=== PATIENT | male | born 1955 | race Caucasian/White ===

== ENCOUNTER 2017-12-14 19:14 | Inpatient (IN) | payer OTHER, MEDICAID, SELFPAY ==
[2017-12-14 19:26] VITALS: BP 167/89; PULSE 122; RESP 32; TEMP 37.7; O2SAT 91
--- NOTE | 2017-12-14 19:52 | DI.RAD.S_ITS ---
PROCEDURE: XR CHEST 1V INDICATIONS: suspected sepsis TECHNIQUE: One view of the chest was acquired. COMPARISON: None. FINDINGS: Surgical changes and devices: None. Lungs and pleura: No pleural effusions or pneumothorax. Lungs are clear. Mediastinum: Mediastinal contours appear normal. Heart size is normal. Bones and chest wall: No suspicious bony lesions. Overlying soft tissues appear unremarkable. IMPRESSION: No acute cardiopulmonary disease. Dictated by: Paula Spaulding M.D. on 12/14/2017 at 20:23 Approved by: Paula Spaulding M.D. on 12/14/2017 at 20:23
[2017-12-14 20:00] VITALS: PULSE 101
[2017-12-14 20:00] LABS: Add Manual Diff / Slide Review NO; Basophils Percent Auto 0.4 % (0-2); Eosinophils Percent Auto 2.1 % (2-4); Hematocrit 47.5 % (41-53); Hemoglobin 16.5 g/dL (13.5-17.5); Lymphocytes Percent Auto 13.6 % (25-40); Mean Corpuscular HGB Conc 34.7 % (30-36); Mean Corpuscular Hemoglobin 34.6 PG (26-34); Mean Corpuscular Volume 99.5 fL (80-100); Monocytes Percent Auto 10.5 % (3-14); Neutrophils Absolute Auto 8300 /uL (3000-5900); Neutrophils Percent Auto 73.4 % (50-75); Platelet Count 219 X10^3/uL (150-400); Red Blood Cell Count 4.77 X10^6/uL (4.5-5.9); Red Cell Distribution Width 13.4 % (11.6-14.8); White Blood Cell Count 11.3 X10^3/uL (4.5-11.0)
[2017-12-14 20:05] LABS: INR 1.1 (0.9-1.3); Prothrombin Time 11.6 SECONDS (10.1-12.7)
[2017-12-14 20:07] LABS: PTT Partial Thromboplastin Tim 30 SECONDS (26.4-36.2)
[2017-12-14 20:08] LABS: Lactate (Lactic Acid) 1.5 mmol/L (0.7-2.1)
[2017-12-14 20:14] LABS: Alanine Aminotransferase 37 IU/L (21-72); Albumin 4.1 g/dL (3.5-5.0); Albumin Globulin Ratio 1.2 (1.0-2.8); Alkaline Phosphatase 99 U/L (38-126); Aspartate Aminotransferase 31 IU/L (17-59); BUN Creatinine Ratio 12.9 (6-22); Blood Urea Nitrogen 9 mg/dL (9-20); Calcium 9.2 mg/dL (8.4-10.2); Carbon Dioxide 30 mmol/L (22-32); Chloride 88 mmol/L (98-107); Estimated Glomerular Filt Rate > 60.0 mL/min (>60); Globulin 3.5 g/dL (1.7-4.1); Glucose 141 mg/dL (80-110); HEMOLYSIS < 15 (0-50); Lipase 39 U/L (23-300); Sodium 130 mmol/L (137-145); Total Protein 7.6 g/dL (6.3-8.2)
[2017-12-14 20:34] LABS: Procalcitonin < 0.05 ng/mL (<0.5)
[2017-12-14] MEDS: SODIUM CHLORIDE 0.9% 1,000 ML 1000 ML IV (20:39)
--- NOTE | 2017-12-14 20:53 | DI.US.S_ITS ---
PROCEDURE: US ARTERIAL DUPLEX LE BI INDICATIONS: severe, acute lower extremity ulcers/infection TECHNIQUE: Color and pulse Doppler interrogation was performed of both lower extremity arterial systems, with image documentation. COMPARISON: None. FINDINGS: Right lower extremity: Common femoral artery: 124 cm/sec, with triphasic flow. Deep femoral artery: 52 cm/sec, with triphasic flow. Proximal superficial femoral artery: 131 cm/sec, with triphasic flow. Mid superficial femoral artery: 134 cm/sec, with triphasic flow. Distal superficial femoral artery: 85 cm/sec, with triphasic flow. Popliteal artery: 83 cm/sec, with triphasic flow. Posterior tibial artery: 102 cm/sec, with monophasic flow. Anterior tibial artery/dorsalis pedis: 88 cm/sec, with monophasic flow. [place]-scale imaging description: No plaque identified. Left lower extremity: Common femoral artery: 105 cm/sec, with triphasic flow. Deep femoral artery: 52 cm/sec, with triphasic flow. Proximal superficial femoral artery: 144 cm/sec, with triphasic flow. Mid superficial femoral artery: 98 cm/sec, with triphasic flow. Distal superficial femoral artery: 99 cm/sec, with triphasic flow. Popliteal artery: 91 cm/sec, with monophasic flow. Posterior tibial artery: 114 cm/sec, with monophasic flow. Anterior tibial artery/dorsalis pedis: 131 cm/sec, with monophasic flow. [place]-scale imaging description: No plaque IMPRESSION: No evidence for hemodynamically significant focal stenosis in either lower extremity Atherosclerotic changes comprising of monophasic waveforms in the popliteal/distal arteries bilaterally. Dictated by: Shar Pascual M.D. on 12/15/2017 at 10:55 Approved by: Shar Pascual M.D. on 12/15/2017 at 10:58
[2017-12-14] MEDS: HYDROMORPHONE 1 MG INJ IV ×2 (21:01→23:28)
[2017-12-14] MEDS: levoFLOXacin 500 MG/100 ML PIGGYBACK 100 MG IV (21:02)
[2017-12-14 21:03] VITALS: BP 149/81; PULSE 107; RESP 18; O2SAT 96
[2017-12-14 21:14] LABS: C-Reactive Protein Quant 4.9 mg/dL (<1.0)
[2017-12-14 21:24] LABS: Erythrocyte Sedimentation Rate 2 MM/HR (0-15)
[2017-12-14 21:40] VITALS: BP 149/91; PULSE 105; RESP 18; TEMP 37.2; O2SAT 95
--- NOTE | 2017-12-14 22:06 | ED.EXTPRO ---
HPI - Extremity Problem General Chief complaint: Extremity Problem,Nontraumatic Stated complaint: STATES SWELLING,BLEEDING,PAIN BOTH FEET Time Seen by Provider: 12/14/17 19:39 Source: patient and family Mode of arrival: ambulatory Limitations: no limitations History of Present Illness HPI Narrative: 62-year-old long-time smoker presents to the emergency department with about 1 week of worsening bilateral lower extremity ulcers, pain and swelling. He denies any injuries nor systemic symptoms such as fever or chills. He does not see a doctor and states he does not know about any ongoing medical problems but does smoke 1 pack per day. He has multiple painful ulcers, some with drainage on his lower extremities and has developed some redness and swelling as well. He denies any focal neurologic findings such as blurred vision, trouble with speech or numbness, tingling or weakness of his extremities. He denies chest pain or shortness of breath. MD Complaint: extremity pain and extremity swelling Onset (ago): day(s) Pain Consistency: constant Location: left, right and lower extremity Quality: burning, stabbing and aching Radiation: none Relieving factors: nothing Exacerbating factors: weight bearing and walking Associated symptoms: denies other symptoms Related Data Home Medications Medication Instructions Recorded Confirmed No Known Home Medications 12/14/17 12/14/17 Allergies Allergy/AdvReac Type Severity Reaction Status Date / Time No Known Drug Allergies Allergy Verified 12/14/17 19:26 Review of Systems Review of Systems All systems reviewed & are unremarkable except as noted in HPI and below Constitutional Denies chills, Denies fever(s), Denies lethargy and Denies weakness Eyes Denies change in vision, Denies eye discharge, Denies irritation and Denies loss of vision ENT Ears, Nose, Mouth, and Throat: Denies change in voice, Denies neck pain and Denies sore throat Cardiovascular Denies chest pain, Denies irregular heart rhythm, Denies lightheadedness, Denies palpitations, Denies dyspnea, Denies dyspnea on exertion and Denies orthopnea Respiratory Reports cough, Denies dyspnea, Denies dyspnea on exertion and Denies wheezing Gastrointestinal Gastrointestinal: Denies abdominal pain, Denies change in bowel habits, Denies diarrhea, Denies nausea and Denies vomiting Genitourinary Denies hematuria, Denies flank pain, Denies urinary incontinence and Denies urinary urgency Musculoskeletal Reports joint swelling, Reports limited range of motion and Denies neck pain Integumentary/Breasts Denies pruritus, Reports erythema, Denies rash, Reports skin pain, Reports skin swelling, Reports skin ulcer, Reports sores and Denies wounds Neurologic Denies confusion, Denies loss of vision and Denies weakness Psychiatric Denies anxiety, Denies confusion, Denies depression, Denies homicidal ideation and Denies suicidal ideation Endocrine Denies palpitations Hematologic/Lymphatic Denies easy bruising Allergic/Immunologic Denies wheezing PFSH Social History household members: none Smoking Status: Current every day smoker Exam Initial Vital Signs Initial Vital Signs: Vital Signs Temperature 99.8 F H 12/14/17 19:26 Pulse Rate 122 H 12/14/17 19:26 Respiratory Rate 32 H 12/14/17 19:26 Blood Pressure 167/89 H 12/14/17 19:26 Pulse Oximetry 91 12/14/17 19:26 Const General: cooperative, well developed, in distress, anxious and disheveled Nutritional Appearance: well nourished Orientation: alert, awake, oriented x3 and not confused HENTX Head: normocephalic and atraumatic Ears: external ears normal and TM's normal bilaterally Nose: external nose normal and No nasal discharge Face and sinus: sinuses nontender, face symmetric, no sinus tenderness and No dry mucous membranes Mouth: oral mucosae normal and moist mucous membranes Teeth and gingiva: dentition normal Throat: tonsils normal and uvula midline Eyes General: appearance normal, both eyes and all related structures Pupils: PERRL EOM: EOM intact bilaterally Neck Neck: normal visual inspection, trachea midline, No lymphadenopathy, No midline deformity and No JVD Lymphatic: No lymphedema Chest Chest: normal inspection of the chest Cardio Rate: regular rate Rhythm: regular rhythm Heart Sounds: no click, no gallops, no murmurs and no rubs Pulses: normal peripheral pulses Back/Spine/Pelvis Back: No CVA tenderness Cervical Spine: cervical ROM normal and No pain with cervical ROM Thoracic/Lumbar Spine: thoracic and lumbar spine normal to inspection Skin Lesions: lesion noted (Multiple red, dark red, purple or blackish ulcers on lower extremities and toes) Neuro General: alert, oriented x3, gait normal and no focal motor deficits Speech: speech normal Extrem Right lower extremity: lower leg Details: erythema, tenderness and localized swelling Left lower extremity: lower leg Details: erythema, tenderness and localized swelling Other: Patient has sensation of toes though there is some black, possibly necrotic tissue on the dorsum of some toes. There is no crepitance palpated. Both dorsalis pedis pulses are easily obtained with ultrasound Doppler Course Orders Ordered: ED Orders 12/14/17 19:40 C-Reactive Protein Quant Stat Complete Blood Count AUTO DIFF Stat Comprehensive Metabolic Panel Stat Erythrocyte Sedimentation Rate Stat Lactate (Lactic Acid) Stat Lipase Stat Partial Thromboplastin Time Stat Procalcitonin Stat Prothrombin Time INR Stat 12/14/17 19:52 XR chest 1V Stat 12/14/17 20:53 US arterial duplex LE BI Stat 12/14/17 20:55 Blood Culture Stat Acetaminophen (Tylenol) 650 mg PO Q6HR PRN PRN Reason: As Needed for Fever/Mild Pain Hydromorphone HCl (Dilaudid) 2 mg IV Q4HR PRN PRN Reason: Pain, Severe (7-10) Last Admin: 12/15/17 01:29 Dose: 2 mg Sodium Chloride (Normal Saline 0.9%) 1,000 mls @ 125 mls/hr IV CONT MARIA A Last Admin: 12/15/17 01:29 Dose: 125 mls/hr Ondansetron HCl (Zofran) 4 mg IV Q4HR PRN PRN Reason: Nausea And Vomiting Discontinued Medications Hydromorphone HCl (Dilaudid) 1 mg IV NOW ONE Stop: 12/14/17 20:54 Last Admin: 12/14/17 21:01 Dose: 1 mg Hydromorphone HCl (Dilaudid) 1 mg IV NOW ONE Stop: 12/14/17 23:27 Last Admin: 12/14/17 23:28 Dose: 1 mg Sodium Chloride (Normal Saline 0.9%) 1,000 mls @ 1,000 mls/hr IV BOLUS ONE Stop: 12/14/17 20:50 Last Infusion: 12/14/17 22:39 Dose: 0 mls/hr Admin: 12/14/17 20:39 Dose: 1,000 mls/hr Levofloxacin (Levaquin) 500 mg in 100 mls @ 100 mls/hr IV NOW ONE Stop: 12/14/17 21:57 Last Infusion: 12/14/17 22:39 Dose: 0 mls/hr Admin: 12/14/17 21:02 Dose: 100 mls/hr Vancomycin HCl 2,000 mg/ (Sodium Chloride) 500 mls @ 333.333 mls/hr IV NOW ONE Stop: 12/14/17 20:54 Last Infusion: 12/15/17 00:27 Dose: 0 mls/hr Admin: 12/14/17 22:39 Dose: 333.333 mls/hr Consultations Consultation #1: Dr. Miranda is happy to accept this patient Vital Signs - 8 hr 12/14/17 20:00 12/14/17 21:03 12/14/17 21:40 Temperature 99.0 F Pulse Rate 107 H 105 H Pulse Rate [Left Dorsalis Pedis] 101 H Pulse Rate [Right Dorsalis Pedis] 101 H Respiratory Rate 18 18 Blood Pressure Blood Pressure [Right Arm] 149/81 H 149/91 H Pulse Oximetry 96 95 12/14/17 23:39 12/15/17 01:05 Temperature 97.8 F Pulse Rate 97 H 97 H Pulse Rate [Left Dorsalis Pedis] Pulse Rate [Right Dorsalis Pedis] Respiratory Rate 18 18 Blood Pressure 164/86 H Blood Pressure [Right Arm] 132/93 H Pulse Oximetry 94 93 MDM - Extremity (Nontraumatic) Lab Data Result diagrams: 12/14/17 19:40 12/14/17 19:40 Lab Results 12/14/17 12/14/17 12/14/17 Range/Units 19:40 19:40 19:40 WBC 11.3 H (4.5-11.0) X10^3/uL RBC 4.77 (4.5-5.9) X10^6/uL Hgb 16.5 (13.5-17.5) g/dL Hct 47.5 (41-53) % MCV 99.5 (80-100) fL MCH 34.6 H (26-34) PG MCHC 34.7 (30-36) % RDW 13.4 (11.6-14.8) % Plt Count 219 (150-400) X10^3/uL Neut % (Auto) 73.4 (50-75) % Lymph % (Auto) 13.6 L (25-40) % [place] % (Auto) 10.5 (3-14) % Eos % (Auto) 2.1 (2-4) % Baso % (Auto) 0.4 (0-2) % Neut # (Auto) 8300 H (1546-6408) /uL ESR (0-15) MM/HR PT 11.6 (10.1-12.7) SECONDS INR 1.1 (0.9-1.3) APTT 30 (26.4-36.2) SECONDS Sodium (137-145) mmol/L Potassium (3.4-5.1) mmol/L Chloride (98-107) mmol/L Carbon Dioxide (22-32) mmol/L BUN (9-20) mg/dL Creatinine (0.66-1.25) mg/dL Estimated GFR (>60) mL/min BUN/Creatinine Ratio (6-22) Glucose (80-110) mg/dL Lactate (0.7-2.1) mmol/L Calcium (8.4-10.2) mg/dL Total Bilirubin (0.2-1.3) mg/dL AST (17-59) IU/L ALT (21-72) IU/L Alkaline Phosphatase (38-126) U/L C-Reactive Protein (<1.0) mg/dL Total Protein (6.3-8.2) g/dL Albumin (3.5-5.0) g/dL Globulin (1.7-4.1) g/dL Albumin/Globulin Ratio (1.0-2.8) Lipase (23-300) U/L Procalcitonin < 0.05 (<0.5) ng/mL 12/14/17 12/14/17 12/14/17 Range/Units 19:40 19:40 19:40 WBC (4.5-11.0) X10^3/uL RBC (4.5-5.9) X10^6/uL Hgb (13.5-17.5) g/dL Hct (41-53) % MCV (80-100) fL MCH (26-34) PG MCHC (30-36) % RDW (11.6-14.8) % Plt Count (150-400) X10^3/uL Neut % (Auto) (50-75) % Lymph % (Auto) (25-40) % [place] % (Auto) (3-14) % Eos % (Auto) (2-4) % Baso % (Auto) (0-2) % Neut # (Auto) (9321-0175) /uL ESR 2 (0-15) MM/HR PT (10.1-12.7) SECONDS INR (0.9-1.3) APTT (26.4-36.2) SECONDS Sodium 130 L (137-145) mmol/L Potassium 4.0 (3.4-5.1) mmol/L Chloride 88 L (98-107) mmol/L Carbon Dioxide 30 (22-32) mmol/L BUN 9 (9-20) mg/dL Creatinine 0.70 (0.66-1.25) mg/dL Estimated GFR > 60.0 (>60) mL/min BUN/Creatinine Ratio 12.9 (6-22) Glucose 141 H (80-110) mg/dL Lactate 1.5 (0.7-2.1) mmol/L Calcium 9.2 (8.4-10.2) mg/dL Total Bilirubin 1.0 (0.2-1.3) mg/dL AST 31 (17-59) IU/L ALT 37 (21-72) IU/L Alkaline Phosphatase 99 (38-126) U/L C-Reactive Protein (<1.0) mg/dL Total Protein 7.6 (6.3-8.2) g/dL Albumin 4.1 (3.5-5.0) g/dL Globulin 3.5 (1.7-4.1) g/dL Albumin/Globulin Ratio 1.2 (1.0-2.8) Lipase 39 (23-300) U/L Procalcitonin (<0.5) ng/mL 12/14/17 Range/Units 19:40 WBC (4.5-11.0) X10^3/uL RBC (4.5-5.9) X10^6/uL Hgb (13.5-17.5) g/dL Hct (41-53) % MCV (80-100) fL MCH (26-34) PG MCHC (30-36) % RDW (11.6-14.8) % Plt Count (150-400) X10^3/uL Neut % (Auto) (50-75) % Lymph % (Auto) (25-40) % [place] % (Auto) (3-14) % Eos % (Auto) (2-4) % Baso % (Auto) (0-2) % Neut # (Auto) (9721-8105) /uL ESR (0-15) MM/HR PT (10.1-12.7) SECONDS INR (0.9-1.3) APTT (26.4-36.2) SECONDS Sodium (137-145) mmol/L Potassium (3.4-5.1) mmol/L Chloride (98-107) mmol/L Carbon Dioxide (22-32) mmol/L BUN (9-20) mg/dL Creatinine (0.66-1.25) mg/dL Estimated GFR (>60) mL/min BUN/Creatinine Ratio (6-22) Glucose (80-110) mg/dL Lactate (0.7-2.1) mmol/L Calcium (8.4-10.2) mg/dL Total Bilirubin (0.2-1.3) mg/dL AST (17-59) IU/L ALT (21-72) IU/L Alkaline Phosphatase (38-126) U/L C-Reactive Protein 4.9 H (<1.0) mg/dL Total Protein (6.3-8.2) g/dL Albumin (3.5-5.0) g/dL Globulin (1.7-4.1) g/dL Albumin/Globulin Ratio (1.0-2.8) Lipase (23-300) U/L Procalcitonin (<0.5) ng/mL MDM Narrative Medical decision making narrative: Patient clearly has undiagnosed, chronic health problems. Patient denies any systemic symptoms such as fever, chills nor nausea or vomiting. There are multiple poorly healing and infected ulcers on his lower extremities, and some necrotic skin on the dorsum of some toes. Bilateral lower extremity arterial ultrasound suggests the major arteries of the lower extremities are patent bilaterally and no elevated velocities to indicate hemodynamically significant stenoses. Patient placed on broad-spectrum antibiotic coverage as this is likely polymicrobial. I had discussion with Dr. Miranda regarding my a opinion regarding whether the patient would need revascularization or if antibiotics and wound care were appropriate. Given findings on arterial ultrasounds it is my opinion that the patient could be treated locally Critical Care Time Critical Care Time: Yes Total Critical Care Time: 30 Attestation: The high probability of a clinically significant, sudden or life threatening deterioration of the [] system(s) required my full and direct attention, intervention and personal management. The aggregate critical care time was [30] minutes. This time is in addition to time spent performing reported procedures but includes the following: [x] Data Review and interpretation [x] Patient assessment and monitoring of vital signs [x] Documentation [x] Medication orders and management Discharge Plan Departure Discharge Date/Time: 12/15/17 00:28 Interventions: ED Discharge Assessment Last Done: 12/15/17 00:27 Admit Date/Time: 12/14/17 23:59 Admit Provider: Celina Miranda
[2017-12-14] MEDS: VANCOMYCIN 2,000 MG in SODIUM CHLORIDE 0.9% 500 ML 333.333 ML IV (22:39)
[2017-12-14 23:39] VITALS: BP 132/93; PULSE 97; RESP 18; O2SAT 94
[2017-12-15] VITALS (12 sets, daily range): BP systolic 127–164; BP diastolic 78–94; PULSE 86–106; RESP 17–18; TEMP 36.4–36.9; O2SAT 90–96; BMI 30.5
--- NOTE | 2017-12-15 | DI.ECHO.S_ITS ---
[place] [facility]---------+ [facility] +---------+ : : [address] : : : : [id number] : : : : Phone: [phone]+ Echocardiogram Report + + :Name: WILLOW OAKLEY Study Date: 12/15/2017 Height: 72 in : :[facility] Exam Location: IS Weight: 225 lb : : Gender: Male BSA: 2.2 m2 : :: 1955 Age: 62 yrs BP: 143/82 mmHg: :Reason For Study: Bilateral edema : :Ordering Physician: Dr. Whalen : :[place] Performed By: Tammy Page : + + Interpretation Summary The left ventricle is normal in size. The ejection fraction is estimated to be 60-65%. The right ventricle is mildly dilated. The right ventricular systolic function is normal. No significant valvular pathology seen. The right ventricular systolic pressure is estimated at 39 mmHg assuming a right atrial pressure of 3 mm Hg. The ascending aorta is mildly enlarged. Procedure: A two-dimensional transthoracic echocardiogram with color flow and Doppler was performed. The study quality was technically adequate. There is no prior echocardiogram noted for this patient. The patient was in normal sinus rhythm during the exam. Left Ventricle: The left ventricle is normal in size. There is normal left ventricular wall thickness. There is no thrombus. The ejection fraction is estimated to be 60-65%. Septal motion is consistent with conduction abnormality. Assessment of diastolic parameters indicates a relaxation abnormality of the left ventricle, consistent with normal filling pressures. Right Ventricle: The right ventricle is mildly dilated. The right ventricular systolic function is normal. Atria: Both atria are normal in size. There is no Doppler evidence for an interatrial shunt. Mitral Valve: The mitral valve is normal in structure and function. There is no mitral regurgitation noted. Aortic Valve: The aortic valve is trileaflet. The aortic valve opens well. There is no aortic valve stenosis. No aortic regurgitation is present. Tricuspid Valve: The tricuspid valve is normal in structure and function. The right ventricular systolic pressure is estimated at 39 mmHg assuming a right atrial pressure of 3 mm Hg. There is trace tricuspid regurgitation. Pulmonic Valve: The pulmonic valve is not well visualized. There is a trace or physiologic amount of pulmonic regurgitation. Great Vessels: The aortic root is normal size. The ascending aorta is mildly enlarged. The aortic arch could not be visualized. The pulmonary is not well visualized. The IVC is of normal diameter and collapses greater than 50% with a sniff. This suggests a low right atrial pressure of 3 mm Hg. Pericardium/ Pleura There is no pericardial effusion. There is no pleural effusion. MMode/2D Measurements & Calculations LVIDd: 5.6 cm LVOT diam: 2.4 cm LVIDs: 3.7 cm Ao root diam: 3.8 cm FS: 35.0 % asc Aorta Diam: 4.0 cm EPSS: 0.34 cm IVSd: 0.66 cm LVPWd: 0.79 cm LV damon. diameter/BSA (cm/m^2): 2.5 LV sys. diameter/BSA (cm/m^2): 1.6 LA A2 area: 24.3 cm2 RA long axis: 5.1 cm LA A4 area: 18.8 cm2 RA area: 15.9 cm2 LA length (vol): 5.5 cm RA vol: 42.0 ml LA vol: 70.8 ml RA : 18.8 ml/m2 LA vol index: 31.6 ml/m2 IVC diam: 1.8 cm RVD1 (basal): 4.7 cm TAPSE: 2.8 cm Doppler Measurements & Calculations Ao V2 max: 144.3 cm/sec LVOT Max Ruben: 107.0 cm/sec Ao V2 mean: 98.8 cm/sec LV V1 max P.6 mmHg Ao max P.3 mmHg LV V1 VTI: 17.4 cm Ao mean P.5 mmHg TRICIA(I,D): 3.4 cm2 Ao V2 VTI: 23.0 cm TRICIA(V,D): 3.3 cm2 sev ratio: 0.76 TRICIA indexed to BSA (cm^2/m^2): 1.5 MV E max ruben: 59.5 cm/sec TR max ruben: 299.1 cm/sec MV A max ruben: 71.7 cm/sec TR max P.8 mmHg MV E/A: 0.83 PA V2 max: 76.3 cm/sec Med Peak E' Ruben: 5.6 cm/sec PA V2 mean: 50.6 cm/sec E/E' med: 10.7 PA mean P.2 mmHg Lat Peak E' Ruben: 15.7 cm/sec PA Accel Time: 0.08 sec E/E' lat: 3.8 E/e' average: 7.2 MV dec time: 0.15 sec MV P1/2t: 44.5 msec MV P1/2t max ruben: 60.5 cm/sec MVA(P12t): 4.9 cm2 Reading Physician:GREGG
--- NOTE | 2017-12-15 | DI.US.S_ITS ---
PROCEDURE: US ABDOMEN LIMITED INDICATIONS: abd pain, r/o AAA TECHNIQUE: Real-time focused scanning was performed of the abdomen, with image documentation. COMPARISON: None. FINDINGS: No ascites is identif 6 ied in all 4 quadrants. The abdominal aorta is completely obscured by shadowing bowel gas IMPRESSION: No ascites. Abdominal aorta is completely obscured by shadowing bowel gas therefore not evaluated. Consider repeat examination after extended n.p.o. (At least 8 hours). Dictated by: Shar Pascual M.D. on 12/15/2017 at 12:35 Approved by: Shar Pascual M.D. on 12/15/2017 at 12:37
[2017-12-15] MEDS: HYDROMORPHONE 2 MG INJ IV ×3 (01:29→13:05)
[2017-12-15] MEDS: SODIUM CHLORIDE 0.9% 1,000 ML 125 ML IV ×2 (01:29→09:01)
--- NOTE | 2017-12-15 03:16 | PC.NURSE ---
Pt admitted to floor as AxOx3, on 2L NC, complaining of b/l leg pain. Patient saturating in high 80s on room air. Put back on 2L and now satting in mid-low 90s. Pt is a daily drinker/smoker. States he is not sure if he has COPD or diabetes or any disease process because he does not go to the doctor normally. He has multiple ulcers on bilateral legs, shins, ankles, and toes. Some wounds are black, red, purple; some have slough; some with necrosis; some are draining some serosanguinous fluid. EZ Graph for multiple wounds done; Pictures taken. Legs were elevated on pillow. Pt complaining of 10/10 pain, dilaudid 2mg IV given with some relief. IVF started as ordered. No nausea/vomiting. Pt's daughter who is very supportive is at bedside for admission. Call lai in reach, safety maintained.
--- NOTE | 2017-12-15 10:39 | P.HP_ITS ---
History of Present Illness Date Patient Seen: 12/15/17 Time Patient Seen: 10:00 Chief complaint: STATES SWELLING,BLEEDING,PAIN BOTH FEET Narrative: 62-year-old man without primary care provider, living on [facility] , has experienced lower extremity sores and ulcers over the past 2 weeks with associated pain, redness and chills. He was seen by his primary care provider and started on antibiotics after topical antifungals did not seem to provide any benefit. As the areas continued to be painful and started bleeding, he sought medical attention at this facility overnight and was admitted for further management and evaluation. He had a lower extremity Doppler performed which showed no significant stenosis. He was given a dose of Levaquin and admitted for further management and evaluation. Patient History Medical History Alcohol abuse (Acute) Tobacco abuse (Acute) Family & Social History Family History: Reviewed 12/15/17 by Koby Foote MD Social History: household members none Prior Living Arrangements Apartment/Condo Safety & Behavioral: Feels Safe in Current Yes Environment Been Physically Hurt or No Threatened By a Person Suicidal Ideation Description None Suicide Plan Description No Plan Tobacco & Substance use: Smoking Status Current every day smoker Smoking packs per day 1 alcohol intake frequency 3 or more drinks per day Substance Use Type does not use Meds Home Medications Medication Instructions Recorded Confirmed Type No Known Home Medications 12/14/17 12/14/17 History Allergies Allergy/AdvReac Type Severity Reaction Status Date / Time No Known Drug Allergies Allergy Verified 12/14/17 19:26 Review of Systems Review of Systems All systems reviewed & are unremarkable except as noted in HPI and below Exam Vital Signs (past 8 hours): - 12/15/17 06:16 12/15/17 08:19 Temperature 97.8 F 97.5 F L Pulse Rate 106 H 99 H Respiratory Rate 18 18 Blood Pressure 156/91 H 143/82 H Pulse Oximetry 93 96 Oxygen Delivery Method Nasal Cannula Oxygen Flow Rate 2 Narrative Exam Narrative: General: Alert, pleasant male, appears comfortable and, mildly anxious in no apparent distress HEENT: Pupils equal round reactive, extraocular movements intact, mucous membranes pink and moist, no mucosal lesions evident Neck: Supple Lungs: Clear to auscultation Cardiac: Regular rate rhythm with grade 1/6 systolic murmur Abdomen: Soft, obese, nontender, no audible bruits the Extremities: Trace pedal edema Dermatologic: Multiple large deeply purpuric to necrotic appearing ulcerations from the upper 1/3 of the muhammad to the feet, from to 2 cm to 8 cm, involving most of the toes, no fingernail her toenail splinters, a TKA Vascular: 2+ dorsalis pedis and posterior tibialis pulses bilaterally Neurologic: Alert, oriented, intact and full lower extremity strength and normal sensation Objective Imaging Chest x-ray: Radiologist's impression: No acute cardiopulmonary disease. Vascular ultrasound: Radiologist's impression: Pending, per verbal no significant LE stenoses ECG: Sinus tachycardia 104 beats per minute, no ischemic changes Labs Result Diagrams: 12/14/17 19:40 12/14/17 19:40 Labs: Laboratory Results - last 24 hr 12/14/17 12/14/17 12/14/17 19:40 19:40 19:40 WBC 11.3 H RBC 4.77 Hgb 16.5 Hct 47.5 MCV 99.5 MCH 34.6 H MCHC 34.7 RDW 13.4 Plt Count 219 Neut % (Auto) 73.4 Lymph % (Auto) 13.6 L Story % (Auto) 10.5 Eos % (Auto) 2.1 Baso % (Auto) 0.4 Neut # (Auto) 8300 H ESR PT 11.6 INR 1.1 APTT 30 Sodium Potassium Chloride Carbon Dioxide BUN Creatinine Estimated GFR BUN/Creatinine Ratio Glucose Lactate Calcium Total Bilirubin AST ALT Alkaline Phosphatase C-Reactive Protein Total Protein Albumin Globulin Albumin/Globulin Ratio Lipase Procalcitonin < 0.05 12/14/17 12/14/17 12/14/17 19:40 19:40 19:40 WBC RBC Hgb Hct MCV MCH MCHC RDW Plt Count Neut % (Auto) Lymph % (Auto) Story % (Auto) Eos % (Auto) Baso % (Auto) Neut # (Auto) ESR 2 PT INR APTT Sodium 130 L Potassium 4.0 Chloride 88 L Carbon Dioxide 30 BUN 9 Creatinine 0.70 Estimated GFR > 60.0 BUN/Creatinine Ratio 12.9 Glucose 141 H Lactate 1.5 Calcium 9.2 Total Bilirubin 1.0 AST 31 ALT 37 Alkaline Phosphatase 99 C-Reactive Protein Total Protein 7.6 Albumin 4.1 Globulin 3.5 Albumin/Globulin Ratio 1.2 Lipase 39 Procalcitonin 12/14/17 19:40 WBC RBC Hgb Hct MCV MCH MCHC RDW Plt Count Neut % (Auto) Lymph % (Auto) Story % (Auto) Eos % (Auto) Baso % (Auto) Neut # (Auto) ESR PT INR APTT Sodium Potassium Chloride Carbon Dioxide BUN Creatinine Estimated GFR BUN/Creatinine Ratio Glucose Lactate Calcium Total Bilirubin AST ALT Alkaline Phosphatase C-Reactive Protein 4.9 H Total Protein Albumin Globulin Albumin/Globulin Ratio Lipase Procalcitonin Assessment & Plan Plan: Assessment/Plan Narrative: 1. Multiple lower extremity ulcerations, possibly ischemic due to atheroembolic or cardiovascular. Risk factors include chronic tobacco use. Obtain echocardiogram and abdominal ultrasound, and await lower extremity Doppler results. Consider MR angiogram of aortoiliac vessels with runoff pending evaluation. Sedimentation rate was normal and C reactive protein very low and likely reactive, making autoimmune disease unlikely. Consider biopsy. Consult wound care Sunday. Check lipids, TSH and hemoglobin A1c. Treat with aspirin 325 mg daily. 2. Cellulitis due to 1. Continue Levaquin. Follow cultures. 3. Mild hyperglycemia. Check hemoglobin A1c to rule out diabetes. 4. Mild hypertension. Continue to monitor. 5. DVT prophylaxis: Treat with Lovenox. 6. Code status: Full code. 7. Disposition: Admit to inpatient status for close monitoring and evaluation of this complex situation.
[2017-12-15 11:05] LABS: Hemoglobin A1C% w Est Avg Glu 5.7 % (4.0-6.0)
[2017-12-15 11:51] LABS: TSH w/ Reflex to FT4 1.43 uIU/mL (0.47-4.68)
--- NOTE | 2017-12-15 12:59 | CM.DANOTE ---
DCP: Case received, EMR reviewed and met with patient. Introduced self and role. DCP template completed with info currently available. Patient is a 62 year old male who admitted yesterday evening to care of hospitalist team. Patient has no provider, and rarely sees a physician. Confirmed this with patient and daughter. Payer: is self pay. Patient came in to hospital secondary to increased swelling to ankles and feet. Has multiple black ulcerated areas to lower legs and feet. Is currently receiving IV antibiotics at this time. Patient lives on [facility], but daughter lives close by. Did verify this with daughter. P: Check in tomorrow with oncoming hospitalist team, and DCP will continue to assess. Home health may be beneficial to patient, but does not have primary MD. Romelia Montez RN/Commercial Lending Vice President
[2017-12-15] MEDS: ASPIRIN EC 325 MG TABLET PO (13:00)
[2017-12-15] MEDS: ENOXAPARIN 40 MG/0.4 ML SYRINGE SUBCUT (13:00)
[2017-12-15] MEDS: SODIUM CHLORIDE 0.9% 500 ML 21 ML IV (17:34)
[2017-12-15] MEDS: levoFLOXacin 500 MG TABLET PO (21:10)
[2017-12-15] MEDS: MORPHINE PCA 30 MG/30 ML PCA.VIAL IV (21:50)
[2017-12-16] VITALS (10 sets, daily range): BP systolic 138–149; BP diastolic 79–91; PULSE 85–96; RESP 12–22; TEMP 36.7–37.1; O2SAT 91–98
--- NOTE | 2017-12-16 | DI.CT.S_ITS ---
PROCEDURE: CT ANGIO CHEST PE PROTOCOL INDICATIONS: hypoxia, PE protocol TECHNIQUE: After the administration of intravenous contrast, 2 mm thick sections acquired from the pulmonary apices to the posterior costophrenic angles. 3-dimensional maximum intensity projection (MIP) coronal and sagittal reformats were then acquired through the thorax. For radiation dose reduction, the following was used: automated exposure control, adjustment of mA and/or kV according to patient size. COMPARISON: None. FINDINGS: Image quality: Excellent. Pulmonary arteries: Pulmonary arteries are normal in size, and demonstrate no intraluminal filling defects to suggest central pulmonary embolism. Lungs and pleura: Mild centrilobular emphysema. Lungs are clear. No pleural effusions or pneumothorax. Central and peripheral airways are patent. Mediastinum: Heart size is normal, without pericardial effusion. No mediastinal or hilar adenopathy. Thoracic aorta is normal in caliber and enhancement. Esophagus is normal in caliber. Tiny hiatal hernia. Bones and chest wall: No suspicious bony lesions. Ribs and thoracic spine appear intact throughout. Thyroid gland is normal. No axillary or supraclavicular adenopathy. Abdomen: There is diffuse hepatic fatty infiltration with geographic appearance. The left hepatic lobe has higher attenuation, presumably secondary to focal fat sparing. Visualized upper abdominal solid organs appear normal in the early arterial phase of enhancement. IMPRESSION: 1. No evidence for central pulmonary embolism. 2. Mild emphysema. 3. Hepatic steatosis. There is focal fat sparing in the left hepatic lobe. Dictated by: Paula Spaulding M.D. on 12/16/2017 at 12:45 Approved by: Paula Spaulding M.D. on 12/16/2017 at 12:52
--- NOTE | 2017-12-16 | DI.MRI.S_ITS ---
PROCEDURE: MR RUN OFF 3 STAGES ABD START INDICATIONS: PAD TECHNIQUE: Precontrast axial and coronal TruFISP acquired through the abdomen and pelvis. Multi-station dynamic coronal MRA using Care Bolus timing from the kidneys to the ankles during the administration of contrast, with 3-dimensional maximum intensity projection (MIP) reformats constructed. COMPARISON: [facility], US, US ARTERIAL DUPLEX LE , 12/14/2017, 22:03. FINDINGS: Image quality: Excellent. ABDOMEN: Aorta: Aorta is normal in caliber and is patent. Renal arteries: Renal arteries all appear patent. Extravascular soft tissues: Visualized solid organs are normal in size on limited pre-contrast images. Bowel loops are normal in caliber. No free fluid. No retroperitoneal or mesenteric adenopathy by size criteria. No ventral hernias. Bones: Marrow demonstrates normal overall signal. PELVIS AND BILATERAL LOWER EXTREMITIES: Right sided vessels: The common, internal and extra the iliac demonstrate no areas of hemodynamically significant stenosis, vascular occlusion or aneurysmal dilation. The profunda artery is patent. The common and superficial femoral arteries demonstrate no areas of hemodynamically significant stenosis, vascular occlusion or aneurysmal dilation. The popliteal arteries are patent. The run off vessels are somewhat difficult to characterize secondary to significant venous vascular overlap from injection timing. The anterior tibial artery appears patent without hemodynamically significant stenosis and extends to the foot. The peroneal and posterior tibial arteries are well visualized in the proximal and mid portions. However, distal portions are not well visualized. There is significant venous overlap within this region. Left sided vessels: The common, internal and extra the iliac demonstrate no areas of hemodynamically significant stenosis, vascular occlusion or aneurysmal dilation. The profunda artery is patent. The common and superficial femoral arteries demonstrate no areas of hemodynamically significant stenosis, vascular occlusion or aneurysmal dilation. The popliteal arteries are patent. The run off vessels are somewhat difficult to characterize secondary to significant venous vascular overlap from injection timing. The anterior tibial artery appears patent without hemodynamically significant stenosis and extends to the foot. The peroneal and posterior tibial arteries are well visualized in the proximal and mid portions to the level of the mid/distal calf. However, distal portions are not well visualized. There is significant venous overlap within this region. IMPRESSION: 1. No areas of hemodynamically significant stenosis, vascular occlusion or aneurysmal dilation. As noted above, distal aspect of the run off vessels bilaterally are poorly characterized secondary to overlapping venous artifact. Underlying areas of atresia and/or stenosis cannot be excluded. Dictated by: Rachael Silva M.D. on 12/17/2017 at 16:33 Approved by: Rachael Silva M.D. on 12/17/2017 at 16:42
[2017-12-16] MEDS: MORPHINE PCA 30 MG/30 ML PCA.VIAL IV ×2 (06:15→21:29)
[2017-12-16 06:17] LABS: Add Manual Diff / Slide Review NO; Eosinophils Percent Auto 4.7 % (2-4); Hematocrit 40.8 % (41-53); Hemoglobin 13.8 g/dL (13.5-17.5); Lymphocytes Percent Auto 11.2 % (25-40); Mean Corpuscular HGB Conc 33.8 % (30-36); Mean Corpuscular Hemoglobin 34.6 PG (26-34); Mean Corpuscular Volume 102.4 fL (80-100); Monocytes Percent Auto 14.2 % (3-14); Neutrophils Absolute Auto 5800 /uL (3000-5900); Neutrophils Percent Auto 68.9 % (50-75); Platelet Count 186 X10^3/uL (150-400); Red Blood Cell Count 3.98 X10^6/uL (4.5-5.9); Red Cell Distribution Width 13.5 % (11.6-14.8); White Blood Cell Count 8.4 X10^3/uL (4.5-11.0)
[2017-12-16 06:34] LABS: BUN Creatinine Ratio 12.2 (6-22); Blood Urea Nitrogen 11 mg/dL (9-20); Calcium 8.8 mg/dL (8.4-10.2); Chloride 95 mmol/L (98-107); Estimated Glomerular Filt Rate > 60.0 mL/min (>60); Glucose 104 mg/dL (80-110); HEMOLYSIS < 15 (0-50); Potassium 4.4 mmol/L (3.4-5.1); Sodium 138 mmol/L (137-145)
[2017-12-16 06:41] LABS: Carbon Dioxide 36 mmol/L (22-32)
[2017-12-16] MEDS: ENOXAPARIN 40 MG/0.4 ML SYRINGE SUBCUT (09:43)
[2017-12-16] MEDS: ASPIRIN EC 325 MG TABLET PO (09:43)
[2017-12-16] MEDS: MULTIVITAMIN 1 TABLET 1 TAB PO (09:44)
[2017-12-16] MEDS: FOLIC ACID 1 MG TABLET PO (09:44)
[2017-12-16] MEDS: THIAMINE 100 MG TABLET PO (09:44)
--- NOTE | 2017-12-16 10:58 | PM.PN.1 ---
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 He has been hypoxic as well since admission with oxygen saturations 88% on room air, requiring 2 L of oxygen by nasal cannula. He has a longstanding smoking history and notes history of asbestos exposure. Exam Vital Signs (past 8 hours): - 12/16/17 04:00 12/16/17 07:00 12/16/17 07:20 Temperature 98.3 F 98.0 F Pulse Rate 91 H 88 Respiratory Rate 18 12 Blood Pressure 138/85 H 149/91 H Pulse Oximetry 96 95 98 Oxygen Delivery Method Nasal Cannula Oxygen Flow Rate 2 Narrative Exam Narrative: General: Alert, pleasant male, appears comfortable and, mildly anxious in no apparent distress HEENT: Pupils equal round reactive, extraocular movements intact, mucous membranes pink and moist, no mucosal lesions evident Neck: Supple Lungs: Clear to auscultation, diminished throughout Cardiac: Regular rate rhythm with grade 1/6 systolic murmur Abdomen: Soft, obese, nontender, no audible bruits the Extremities: Trace pedal edema Dermatologic: Multiple large deeply purpuric to necrotic appearing ulcerations from the upper 1/3 of the muhammad to the feet, from to 2 cm to 8 cm, involving most of the toes, no fingernail her toenail splinters, a TKA Vascular: 2+ dorsalis pedis and posterior tibialis pulses bilaterally Neurologic: Alert, oriented, intact and full lower extremity strength and normal sensation Objective Labs Result Diagrams: 12/16/17 05:53 12/16/17 05:53 Labs: Laboratory Results - last 24 hr 12/15/17 12/15/17 12/16/17 10:50 10:50 05:53 WBC 8.4 RBC 3.98 L Hgb 13.8 Hct 40.8 L MCV 102.4 H MCH 34.6 H MCHC 33.8 RDW 13.5 Plt Count 186 Neut % (Auto) 68.9 Lymph % (Auto) 11.2 L Fleming % (Auto) 14.2 H Eos % (Auto) 4.7 H Baso % (Auto) 1.0 Neut # (Auto) 5800 Sodium Potassium Chloride Carbon Dioxide BUN Creatinine Estimated GFR BUN/Creatinine Ratio Glucose Hemoglobin A1c 5.7 Calcium TSH 1.43 12/16/17 05:53 WBC RBC Hgb Hct MCV MCH MCHC RDW Plt Count Neut % (Auto) Lymph % (Auto) Fleming % (Auto) Eos % (Auto) Baso % (Auto) Neut # (Auto) Sodium 138 Potassium 4.4 Chloride 95 L Carbon Dioxide 36 H BUN 11 Creatinine 0.90 Estimated GFR > 60.0 BUN/Creatinine Ratio 12.2 Glucose 104 Hemoglobin A1c Calcium 8.8 TSH Assessment & Plan Plan: Assessment/Plan Narrative: 1. 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 Risk factors include chronic tobacco use. Lower extremity arterial Doppler ultrasound showed patent vessels with atherosclerotic disease. Echocardiogram was normal with EF 60-65% and normal valves. Abdominal ultrasound was nondiagnostic to rule out AA, and will obtain MR angiogram of aortoiliac vessels with runoff. Sedimentation rate was normal and C reactive protein very low and likely reactive, making autoimmune disease unlikely. Consider biopsy. Consult wound care Sunday. TSH and hemoglobin A1c normal. Treat with aspirin 325 mg daily. Check lipids and start high-dose statin therapy with rosuvastatin 20 mg daily. 2. Cellulitis due to 1. Continue Levaquin. Follow cultures. 3. Mild hyperglycemia. No evidence of diabetes with normal hemoglobin A1c. 4. Mild hypertension. Continue to monitor. Consider treatment if persistently elevated, though avoid at this point to maximize lower extremity microvascular perfusion pressures. 5. Hypoxia. Incidentally noted and possibly due to chronic undiagnosed COPD from tobacco use. Obtain CT angiogram chest to rule out occult pulmonary emboli. 6. Chronic alcohol use. No evidence of withdrawal presently. Monitor on [facility] protocol. 7. DVT prophylaxis: Treat with Lovenox. 8. Code status: Full code. 9. Disposition: Ongoing inpatient status for close monitoring and evaluation of this complex situation.
[2017-12-16] MEDS: MORPHINE PCA 30 MG/30 ML PCA.VIAL 4 MG IV (14:25)
[2017-12-16] MEDS: SODIUM CHLORIDE 0.9% 500 ML 21 ML IV (17:47)
[2017-12-16] MEDS: levoFLOXacin 500 MG TABLET PO (21:27)
[2017-12-16] MEDS: ROSUVASTATIN 10 MG TABLET 20 MG PO (21:27)
[2017-12-17] VITALS (11 sets, daily range): BP systolic 121–158; BP diastolic 74–94; PULSE 85–106; RESP 18–22; TEMP 36.4–36.9; O2SAT 91–96
[2017-12-17] MEDS: MORPHINE PCA 30 MG/30 ML PCA.VIAL IV ×3 (05:40→22:34)
[2017-12-17 07:05] LABS: BUN Creatinine Ratio 18.9 (6-22); Blood Urea Nitrogen 17 mg/dL (9-20); Calcium 8.8 mg/dL (8.4-10.2); Carbon Dioxide 39 mmol/L (22-32); Chloride 96 mmol/L (98-107); Estimated Glomerular Filt Rate > 60.0 mL/min (>60); Glucose 104 mg/dL (80-110); HEMOLYSIS < 15 (0-50); Sodium 140 mmol/L (137-145)
[2017-12-17 07:26] LABS: Cholesterol 135 mg/dL (140-199); HDL Cholesterol 47 mg/dL (40-60); LDL Cholesterol Calculated 76 mg/dL (<100); Triglycerides 60 mg/dL (35-150)
[2017-12-17] MEDS: THIAMINE 100 MG TABLET PO (09:22)
[2017-12-17] MEDS: FOLIC ACID 1 MG TABLET PO (09:23)
[2017-12-17] MEDS: MULTIVITAMIN 1 TABLET 1 TAB PO (09:23)
[2017-12-17] MEDS: ASPIRIN EC 325 MG TABLET PO (09:23)
--- NOTE | 2017-12-17 10:03 | PC.NURSE ---
Addendum entered by Kristnie Glynn R.N. 12/17/17 11:01: integ - cleaned wounds and between toes with normal saline, gently dried, gent ointment w/foam over open areas, hydrogel to the crusted scab wounds. Original Note: AM NOTE - alert, ciwa 0, states pain bayron le, feet managed with oracle database administrator, active weeping serosang drainage from blackened areas toes from r&l gt toes, between and to 5th with cracks, dry skin visible and bayron le areas open wounds serosang drainage, pink wound bases, dark eschar medial r ankle, in this am and wound cult taken on R&L open wound areas, ra 92%, hr 96.
--- NOTE | 2017-12-17 10:21 | PM.PN.1 ---
Subjective Date Patient Seen: 12/17/17 Time Patient Seen: 10:23 Interval history: Feeling a little better but still with severe sloughing of the skin and pain in the feet Exam Vital Signs (past 8 hours): - 12/17/17 05:25 12/17/17 09:59 12/17/17 10:02 Temperature 97.9 F Pulse Rate 90 Respiratory Rate 20 Blood Pressure 158/89 H Pulse Oximetry 92 92 92 Oxygen Delivery Method Room Air Oxygen Flow Rate 0 Narrative Exam Narrative: He appears in no acute distress lungs clear heart regular rhythm abdomen soft Skin he has multiple scabbed over lesions on the lower shins bilateral and then on the toes and feet he has sloughing skin and appears to be sloughing blisters that her hemorrhagic and starting to scab over this is mostly on the dorsal surface right at the toes and in between the toes. Objective Labs Result Diagrams: 12/16/17 05:53 12/17/17 06:35 Labs: Laboratory Results - last 24 hr 12/17/17 12/17/17 06:35 06:35 Sodium 140 Potassium 4.0 Chloride 96 L Carbon Dioxide 39 H BUN 17 Creatinine 0.90 Estimated GFR > 60.0 BUN/Creatinine Ratio 18.9 Glucose 104 Calcium 8.8 Triglycerides 60 Cholesterol 135 L LDL Cholesterol, Calc 76 HDL Cholesterol 47 Assessment & Plan Plan: Assessment/Plan Narrative: 1. 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 Risk factors include chronic tobacco use. Lower extremity arterial Doppler ultrasound showed patent vessels with atherosclerotic disease. Echocardiogram was normal with EF 60-65% and normal valves. Abdominal ultrasound was nondiagnostic to rule out AA, and will obtain MR angiogram of aortoiliac vessels with runoff. Sedimentation rate was normal and C reactive protein very low and likely reactive, making autoimmune disease unlikely. Consider biopsy. . TSH and hemoglobin A1c normal. Treat with aspirin 325 mg daily. Check lipids and start high-dose statin therapy with rosuvastatin 20 mg daily. Wound care consult to be done today. My also called the sports umpire on staff to have her look at it but she is not in back in in the officer in town until Sunday I did take some pictures today. We will continue local wound care and get the MRA and then possibly we will need to get more input from specialist 2. Cellulitis due to 1. Continue Levaquin. Follow cultures. 3. Mild hyperglycemia. No evidence of diabetes with normal hemoglobin A1c. 4. Mild hypertension. Continue to monitor. Consider treatment if persistently elevated, though avoid at this point to maximize lower extremity microvascular perfusion pressures. 5. Hypoxia. Incidentally noted and possibly due to chronic undiagnosed COPD from tobacco use. CT angio negative for PE 6. Chronic alcohol use. No evidence of withdrawal presently. Monitor on [facility] protocol. 7. DVT prophylaxis: Treat with Lovenox. 8. Code status: Full code. 9. Disposition: Ongoing inpatient status for close monitoring and evaluation of this complex situation.
--- NOTE | 2017-12-17 10:27 | P.PN_ITS ---
Subjective Date Patient Seen: 12/17/17 Time Patient Seen: 10:23 Interval history: Feeling a little better but still with severe sloughing of the skin and pain in the feet Exam Vital Signs (past 8 hours): - 12/17/17 05:25 12/17/17 09:59 12/17/17 10:02 Temperature 97.9 F Pulse Rate 90 Respiratory Rate 20 Blood Pressure 158/89 H Pulse Oximetry 92 92 92 Oxygen Delivery Method Room Air Oxygen Flow Rate 0 Narrative Exam Narrative: He appears in no acute distress lungs clear heart regular rhythm abdomen soft Skin he has multiple scabbed over lesions on the lower shins bilateral and then on the toes and feet he has sloughing skin and appears to be sloughing blisters that her hemorrhagic and starting to scab over this is mostly on the dorsal surface right at the toes and in between the toes. Objective Labs Result Diagrams: 12/16/17 05:53 12/17/17 06:35 Labs: Laboratory Results - last 24 hr 12/17/17 12/17/17 06:35 06:35 Sodium 140 Potassium 4.0 Chloride 96 L Carbon Dioxide 39 H BUN 17 Creatinine 0.90 Estimated GFR > 60.0 BUN/Creatinine Ratio 18.9 Glucose 104 Calcium 8.8 Triglycerides 60 Cholesterol 135 L LDL Cholesterol, Calc 76 HDL Cholesterol 47 Assessment & Plan Plan: Assessment/Plan Narrative: 1. 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 Risk factors include chronic tobacco use. Lower extremity arterial Doppler ultrasound showed patent vessels with atherosclerotic disease. Echocardiogram was normal with EF 60-65% and normal valves. Abdominal ultrasound was nondiagnostic to rule out AA, and will obtain MR angiogram of aortoiliac vessels with runoff. Sedimentation rate was normal and C reactive protein very low and likely reactive, making autoimmune disease unlikely. Consider biopsy. . TSH and hemoglobin A1c normal. Treat with aspirin 325 mg daily. Check lipids and start high-dose statin therapy with rosuvastatin 20 mg daily. Wound care consult to be done today. My also called the assistant hvac mechanic on staff to have her look at it but she is not in back in in the officer in town until Sunday I did take some pictures today. We will continue local wound care and get the MRA and then possibly we will need to get more input from specialist 2. Cellulitis due to 1. Continue Levaquin. Follow cultures. 3. Mild hyperglycemia. No evidence of diabetes with normal hemoglobin A1c. 4. Mild hypertension. Continue to monitor. Consider treatment if persistently elevated, though avoid at this point to maximize lower extremity microvascular perfusion pressures. 5. Hypoxia. Incidentally noted and possibly due to chronic undiagnosed COPD from tobacco use. CT angio negative for PE 6. Chronic alcohol use. No evidence of withdrawal presently. Monitor on [facility] protocol. 7. DVT prophylaxis: Treat with Lovenox. 8. Code status: Full code. 9. Disposition: Ongoing inpatient status for close monitoring and evaluation of this complex situation.
[2017-12-17] MEDS: GENTAMICIN 0.1% OINT 30 GM 1 APPLIC TOP (11:25)
--- NOTE | 2017-12-17 13:46 | P.CONS_ITS ---
History of Present Illness Date Patient Seen: 12/17/17 Time Patient Seen: 08:00 Chief complaint: STATES SWELLING,BLEEDING,PAIN BOTH FEET Requesting provider: Koby Foote Narrative: The patient's been admitted for cellulitis of the lower leg associated with chronic bilateral lower leg and foot ulcers that have been present for about a month. He reports considerable pain in both legs along with swelling but does not report fevers or feeling unwell in general. He's had a work up to review for a possible thromboembolic etiology for the ulcers however his ECHO and CTA are unremarkable. His lower extremity arterial doppler also does not confirm clinically significant PAD and he does not have a diagnosis of diabetes. The patient does report however using hydrogen peroxide on the ulcers and soaking his legs in an epsom salt bath. He also states he takes a full dose aspirin daily but does not report a specific reason for doing so. REPLACED BY [facility] Medical History Alcohol abuse (Acute) Tobacco abuse (Acute) Family History: Reviewed 12/15/17 by Koby Foote MD Social History household members: none Smoking Status: Current every day smoker Meds Home Medications Medication Instructions Recorded Confirmed Type No Known Home Medications 12/14/17 12/14/17 History Allergies Allergy/AdvReac Type Severity Reaction Status Date / Time No Known Drug Allergies Allergy Verified 12/14/17 19:26 Review of Systems Musculoskeletal Musculoskeletal: Reports as per HPI Exam Vital Signs (past 8 hours): - 12/17/17 08:30 12/17/17 09:59 12/17/17 10:02 Temperature 98.1 F Pulse Rate 106 H Respiratory Rate 18 Blood Pressure 151/74 H Pulse Oximetry 91 92 92 Oxygen Delivery Method Room Air Oxygen Flow Rate 0 Extrem Right lower extremity: edema Details: 1+ Left lower extremity: edema Details: 1+ Other: multiple bialteral lower leg and foot ulcers extending to the plantar surfaces with many covered with black eschar and blisters; open ulcers extending to subcut noted along lateral aspects of both feet Objective Labs Result Diagrams: 12/16/17 05:53 12/17/17 06:35 Labs: Laboratory Results - last 24 hr 12/17/17 12/17/17 06:35 06:35 Sodium 140 Potassium 4.0 Chloride 96 L Carbon Dioxide 39 H BUN 17 Creatinine 0.90 Estimated GFR > 60.0 BUN/Creatinine Ratio 18.9 Glucose 104 Calcium 8.8 Triglycerides 60 Cholesterol 135 L LDL Cholesterol, Calc 76 HDL Cholesterol 47 Assessment & Plan Plan: Assessment/Plan Narrative: I've written dressing orders to minimize adherence of the dressings to the open ulcers and to hydrate the eschar covered ones which will help facilitate debridement once he's discharged from the hospital. He has good pulses in both feet so we'll also consider placing compression wraps following discharge as well. My sense is that the ulcers started from excoriated rashes that subsequently became infected and the overlying eschar and dark purple appearance may be related to his using hydrogen peroxide and taking a full dose aspirin. More ominous etiologies such as an embolic or autoimmune events should continue to be considered however in the absence of other systemic findings would be unlikely.
--- NOTE | 2017-12-17 14:48 | CM.DPC ---
DCP: continued: case received, EMR reviewed including DCP assessment per RN Val. [place] Counselor Michelle has met with pt and notes his income at $2000 month. She has given him [facility] info. Am unsure if they will continue to follow on this, [employer] has an email into [employer] employee relations manager for clarification. Dr. Winchester/wound care center is consulting. P: remains in process..of note: pt on CIWA protocol for reported chronic alcohol use but as of today CIWA score at 0. A challenge with the d/c plan will be lack at this point of insurance but pt does have a monthly income. At baseline he was independent and drives. His daughter lives nearby. Dependent on the medical d/c needs pt may be able to manage this in the outpt setting but he will need a PCP. DCP team to continue to follow
[2017-12-17 15:32] LABS: B Type Natriuretic Peptide < 100.0 (<100)
[2017-12-17] MEDS: SODIUM CHLORIDE 0.9% 500 ML 21 ML IV (18:39)
--- NOTE | 2017-12-17 19:16 | PC.NURSE ---
Pt left for MRI ~1540 and arrived back to floor ~1615. New IV placed by D.I nurse. BLE elevated on chux pads, kerlix wrap drsg in place to bilateral feet, drsg DI. Pt continues to use MS TROLLEY WIRE INSTALLER for pain & per pt is taking the edge off. Will continue to monitor.
[2017-12-17] MEDS: levoFLOXacin 500 MG TABLET PO (20:31)
[2017-12-17] MEDS: ROSUVASTATIN 10 MG TABLET 20 MG PO (20:32)
[2017-12-18] VITALS (8 sets, daily range): BP systolic 135–154; BP diastolic 84–89; PULSE 79–96; RESP 16–20; TEMP 36.7–37.1; O2SAT 90–96
[2017-12-18] MEDS: MORPHINE PCA 30 MG/30 ML PCA.VIAL IV ×3 (05:41→21:31)
[2017-12-18] MEDS: ASPIRIN EC 325 MG TABLET PO (09:21)
[2017-12-18] MEDS: GENTAMICIN 0.1% OINT 30 GM 1 APPLIC TOP (09:21)
[2017-12-18] MEDS: THIAMINE 100 MG TABLET PO (09:21)
[2017-12-18] MEDS: FOLIC ACID 1 MG TABLET PO (09:21)
[2017-12-18] MEDS: MULTIVITAMIN 1 TABLET 1 TAB PO (09:21)
--- NOTE | 2017-12-18 09:25 | PC.NURSE ---
Addendum entered by Kristine Glynn R.N. 12/18/17 10:39: iINTEG/RESP - after breakfast, enc pt use IS and demonstrated use to 1500, prior to dsg change, enc use irrigation equipment mechanic, removed kerlex and foam gently with normal saline, larger open areas lat r &l ankles, smaller open areas medial ankles, fluid filled areas along lat l foot, some starting to open, large patches dark eschar mid calf and crusted between toes, hydrogel to crusted areas, gent ointment to open wounds, beds are pink w/serosang drainage, some yellow patches in wounds, gent ointment to open areas with foam over, then kerlex wrap, hydrogel to crusted areas toes and calves. Original Note: AM NOTE - awakened late this am for breakfast, using irrigation equipment mechanic prior to mobilizing to br, states pain 6 on scale 0/10 when le are dependent, dusky, scattered dark eschar visible, ret to bed, elev le, bs dim w/coarse crackles bases, ra 96%, brought in IS, hr 96, discussed chg le dsg later am after meal.
--- NOTE | 2017-12-18 10:21 | PM.PN.1 ---
Subjective Date Patient Seen: 12/18/17 Time Patient Seen: 10:22 Interval history: Still with extreme pain in the feet Exam Vital Signs (past 8 hours): - 12/18/17 04:19 12/18/17 08:00 12/18/17 09:28 Temperature 98.1 F 98.6 F Pulse Rate 96 H 93 H Respiratory Rate 18 17 Blood Pressure 136/84 H 154/84 H Pulse Oximetry 94 90 L 90 L Oxygen Delivery Method Room Air Oxygen Flow Rate 0 Narrative Exam Narrative: He is in no distress HEENT exam unremarkable Lungs clear Heart regular rhythm Abdomen soft nontender Skin multiple scabbed over lesions on the lower shins bilateral and on the toes and feet he has some sloughing of the skin also noted sloping blisters noted hemorrhagic areas and areas there starting to scab over. Areas involved the dorsal surface the feet mostly and then between the toes also some areas on the plantar surface Objective Labs Result Diagrams: 12/16/17 05:53 12/17/17 06:35 Labs: Laboratory Results - last 24 hr 12/17/17 14:40 B-Natriuretic Peptide < 100.0 Assessment & Plan Plan: Assessment/Plan Narrative: 1. 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 Risk factors include chronic tobacco use. Lower extremity arterial Doppler ultrasound showed patent vessels with atherosclerotic disease. Echocardiogram was normal with EF 60-65% and normal valves. Abdominal ultrasound was nondiagnostic to rule out AA, and will obtain MR angiogram of aortoiliac vessels with runoff. Sedimentation rate was normal and C reactive protein very low and likely reactive, making autoimmune disease unlikely. Consider biopsy. . TSH and hemoglobin A1c normal. Treat with aspirin 325 mg daily. Check lipids and start high-dose statin therapy with rosuvastatin 20 mg daily. Wound care consult to be done today. My also called the agricultural extension educator on staff to have her look at it but she is not in back in in the officer in town until Sunday I did take some pictures today. We will continue local wound care. The MRA was also negative no signs of stenosis or significant vascular disease. He does seem to be responding to conservative treatment and placement at a jail type of facility would be appropriate at this point with aching continue with wound care until he can walk better 2. Cellulitis due to 1. There is a small amount of Staph growing out. I will stop the Levaquin and put him on vancomycin for now 3. Mild hyperglycemia. No evidence of diabetes with normal hemoglobin A1c. 4. Mild hypertension. Continue to monitor. Consider treatment if persistently elevated, though avoid at this point to maximize lower extremity microvascular perfusion pressures. 5. Hypoxia. Incidentally noted and possibly due to chronic undiagnosed COPD from tobacco use. CT angio negative for PE 6. Chronic alcohol use. No evidence of withdrawal presently. Monitor on [facility] protocol. 7. DVT prophylaxis: Treat with Lovenox. 8. Code status: Full code. 9. Disposition: Ongoing inpatient status for close monitoring and evaluation of this complex situation.
--- NOTE | 2017-12-18 10:24 | P.PN_ITS ---
Subjective Date Patient Seen: 12/18/17 Time Patient Seen: 10:22 Interval history: Still with extreme pain in the feet Exam Vital Signs (past 8 hours): - 12/18/17 04:19 12/18/17 08:00 12/18/17 09:28 Temperature 98.1 F 98.6 F Pulse Rate 96 H 93 H Respiratory Rate 18 17 Blood Pressure 136/84 H 154/84 H Pulse Oximetry 94 90 L 90 L Oxygen Delivery Method Room Air Oxygen Flow Rate 0 Narrative Exam Narrative: He is in no distress HEENT exam unremarkable Lungs clear Heart regular rhythm Abdomen soft nontender Skin multiple scabbed over lesions on the lower shins bilateral and on the toes and feet he has some sloughing of the skin also noted sloping blisters noted hemorrhagic areas and areas there starting to scab over. Areas involved the dorsal surface the feet mostly and then between the toes also some areas on the plantar surface Objective Labs Result Diagrams: 12/16/17 05:53 12/17/17 06:35 Labs: Laboratory Results - last 24 hr 12/17/17 14:40 B-Natriuretic Peptide < 100.0 Assessment & Plan Plan: Assessment/Plan Narrative: 1. 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 Risk factors include chronic tobacco use. Lower extremity arterial Doppler ultrasound showed patent vessels with atherosclerotic disease. Echocardiogram was normal with EF 60-65% and normal valves. Abdominal ultrasound was nondiagnostic to rule out AA, and will obtain MR angiogram of aortoiliac vessels with runoff. Sedimentation rate was normal and C reactive protein very low and likely reactive, making autoimmune disease unlikely. Consider biopsy. . TSH and hemoglobin A1c normal. Treat with aspirin 325 mg daily. Check lipids and start high-dose statin therapy with rosuvastatin 20 mg daily. Wound care consult to be done today. My also called the time motion analyst on staff to have her look at it but she is not in back in in the officer in town until Sunday I did take some pictures today. We will continue local wound care. The MRA was also negative no signs of stenosis or significant vascular disease. He does seem to be responding to conservative treatment and placement at a [facility] type of facility would be appropriate at this point with aching continue with wound care until he can walk better 2. Cellulitis due to 1. There is a small amount of Staph growing out. I will stop the Levaquin and put him on vancomycin for now 3. Mild hyperglycemia. No evidence of diabetes with normal hemoglobin A1c. 4. Mild hypertension. Continue to monitor. Consider treatment if persistently elevated, though avoid at this point to maximize lower extremity microvascular perfusion pressures. 5. Hypoxia. Incidentally noted and possibly due to chronic undiagnosed COPD from tobacco use. CT angio negative for PE 6. Chronic alcohol use. No evidence of withdrawal presently. Monitor on [facility] protocol. 7. DVT prophylaxis: Treat with Lovenox. 8. Code status: Full code. 9. Disposition: Ongoing inpatient status for close monitoring and evaluation of this complex situation.
[2017-12-18] MEDS: VANCOMYCIN 1,000 MG/200 ML FROZ.PIGGY 200 MG IV ×2 (11:23→19:18)
[2017-12-18] MEDS: VANCOMYCIN PER PHARMACY 1 REQUEST MISC (11:35)
--- NOTE | 2017-12-18 13:45 | CM.DPC ---
DCP Cont: Patient is in need of skilled services, secondary to wounds and weakness. Multiple wounds to lower extremity. Chyna, admissions counselor, stated that patient does qualify for [facility] with [facility]. IP notification faxed with social security number until policy number is available P: DCP continue to assess and plan for update on insurance, to enable skilled placement for patient. Janiya Montez RN/Motor Vehicle Assembly Supervisor
[2017-12-18] MEDS: SODIUM CHLORIDE 0.9% 500 ML 21 ML IV (19:17)
[2017-12-18] MEDS: ROSUVASTATIN 10 MG TABLET 20 MG PO (21:29)
[2017-12-19] VITALS (9 sets, daily range): BP systolic 125–151; BP diastolic 77–89; PULSE 85–103; RESP 18–20; TEMP 36.7–36.9; O2SAT 91–96
[2017-12-19] MEDS: VANCOMYCIN 1,000 MG/200 ML FROZ.PIGGY 200 MG IV ×3 (03:17→17:02)
--- NOTE | 2017-12-19 03:31 | PC.NURSE ---
Addendum entered by Nieves Charles R.N. 12/19/17 06:05: pt used 4mg of his Morphine STUDENT ADMISSIONS CLERK pump Original Note: Pt is AxOx3, CIWA=0, VSS. IVF running as ordered, Morphine STUDENT ADMISSIONS CLERK pump infusing. On contact precautions. Pt is concerned he has a flesh eating bacteria and wants clarification on whether or not his wounds are caused by that. I have explained that his cultures have showed a staph infection and that he is being treated with Vanco. Telemetry on, running NSR. Pt states his pain is about a 6/10. Wounds are wrapped in kerlix and elevated on pillow. Pt is tolerating Room air.
[2017-12-19] MEDS: MORPHINE PCA 30 MG/30 ML PCA.VIAL IV (06:04)
[2017-12-19] MEDS: MULTIVITAMIN 1 TABLET 1 TAB PO (10:15)
[2017-12-19] MEDS: ASPIRIN EC 325 MG TABLET PO (10:15)
[2017-12-19] MEDS: FOLIC ACID 1 MG TABLET PO (10:15)
[2017-12-19] MEDS: THIAMINE 100 MG TABLET PO (10:15)
[2017-12-19] MEDS: GENTAMICIN 0.1% OINT 30 GM 1 APPLIC TOP (10:16)
[2017-12-19 11:41] LABS: Vancomycin Trough 9.1 ug/mL (10-20)
[2017-12-19] MEDS: VANCOMYCIN TROUGH 1 REQUEST MISC (12:43)
--- NOTE | 2017-12-19 13:20 | PM.PN.1 ---
Subjective Date Patient Seen: 12/19/17 Time Patient Seen: 13:21 Interval history: Still complains of pain in the feet Exam Vital Signs (past 8 hours): - 12/19/17 07:00 12/19/17 08:00 12/19/17 10:59 Temperature 98.3 F Pulse Rate 103 H Respiratory Rate 20 Blood Pressure 147/83 H Pulse Oximetry 91 91 93 Fraction of Inspired Oxygen 21 Oxygen Delivery Method Room Air Oxygen Flow Rate 0 Narrative Exam Narrative: He is sitting up on the side of the bed eating lunch appears to be in no acute distress the feet are wrapped there has been no change in the last 24 hr with the ulcerations of the toes and feet. Objective Labs Result Diagrams: 12/16/17 05:53 12/17/17 06:35 Labs: Laboratory Results - last 24 hr 12/19/17 10:40 Vancomycin Trough 9.1 L Assessment & Plan Plan: Assessment/Plan Narrative: 1. 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 Risk factors include chronic tobacco use. Lower extremity arterial Doppler ultrasound showed patent vessels with atherosclerotic disease. Echocardiogram was normal with EF 60-65% and normal valves. Abdominal ultrasound was nondiagnostic to rule out AA, and will obtain MR angiogram of aortoiliac vessels with runoff. Sedimentation rate was normal and C reactive protein very low making autoimmune disease unlikely. Also making acute infection unlikely to Consider biopsy. . TSH and hemoglobin A1c normal. Treat with aspirin 325 mg daily. Check lipids and start high-dose statin therapy with rosuvastatin 20 mg daily. We will continue local wound care. The MRA was also negative no signs of stenosis or significant vascular disease. He does seem to be responding to conservative treatment and placement at a correction type of facility would be appropriate at this point with aching continue with wound care until he can walk better 2. Cellulitis due to 1. There is a small amount of Staph growing out. Plan to continue 1 more day of antibiotics. Normal ESR which probably indicates no active infection at this point cultures have been negative. 3. Mild hyperglycemia. No evidence of diabetes with normal hemoglobin A1c. 4. Mild hypertension. Continue to monitor. Consider treatment if persistently elevated, though avoid at this point to maximize lower extremity microvascular perfusion pressures. 5. Hypoxia. Incidentally noted and possibly due to chronic undiagnosed COPD from tobacco use. CT angio negative for PE 6. Chronic alcohol use. No evidence of withdrawal presently. Monitor on CI [place] protocol. 7. DVT prophylaxis: Treat with Lovenox. 8. Code status: Full code. 9. Disposition: Ongoing inpatient status for close monitoring and evaluation of this complex situation.
--- NOTE | 2017-12-19 15:19 | PC.NURSE ---
day shift pt took a shower and dressing changes performed afterwards. This was extraordinarily painful for the pt and he used the TREE CARE FOREMAN for a total of 16 mg morphine this shift. skin was sloughing off with cleaning with NS. Toes had skin attaching them together with tissue. cleaned and ointments applied per orders. foam applied on open areas, telfa applied between toes with appropriate ointments as well. wrapped in kerlix. hourly rounding provided, call light within reach.
[2017-12-19] MEDS: OXYCODONE IR 5 MG TABLET 10 MG PO ×2 (17:07→21:55)
[2017-12-19] MEDS: ROSUVASTATIN 10 MG TABLET 20 MG PO (21:55)
[2017-12-20] VITALS (8 sets, daily range): BP systolic 125–150; BP diastolic 78–87; PULSE 84–105; RESP 18–22; TEMP 36.5–37.2; O2SAT 91–95
[2017-12-20] MEDS: VANCOMYCIN 1,000 MG/200 ML FROZ.PIGGY 100 MG IV ×2 (00:29→06:50)
[2017-12-20] MEDS: SODIUM CHLORIDE 0.9% 500 ML 21 ML IV (00:31)
[2017-12-20] MEDS: OXYCODONE IR 5 MG TABLET 10 MG PO ×6 (00:59→21:17)
--- NOTE | 2017-12-20 02:20 | PC.NURSE ---
Addendum entered by Nieves Charles R.N. 12/20/17 06:49: vanco trough= 16.8 Original Note: Pt is AxOx3, VSS, tolerating room air at 94%. Pt's IV has infiltrated for a second time, and has been replaced. I am running the Vanco at a slower rate of 100cc/hr so patients IV doesn't infiltrate for a 3rd time, i also am infusing NS 21cc/hr concurrently as well to help with the causticity of the Vanco. Trough to be done in the morning. 2 percolone tabs given thus far for pain of 7/10, pt frequently stating his legs are burning and in pain. Legs are wrapped in kerlix and elevated on pillow. CIWA=0. Tele showing NSR. Contact precautions maintained.
[2017-12-20 05:48] LABS: Add Manual Diff / Slide Review NO; Basophils Percent Auto 0.7 % (0-2); Eosinophils Percent Auto 4.4 % (2-4); Hematocrit 40.6 % (41-53); Hemoglobin 13.7 g/dL (13.5-17.5); Lymphocytes Percent Auto 16.5 % (25-40); Mean Corpuscular HGB Conc 33.8 % (30-36); Mean Corpuscular Hemoglobin 34.2 PG (26-34); Mean Corpuscular Volume 101.4 fL (80-100); Monocytes Percent Auto 10.5 % (3-14); Neutrophils Absolute Auto 6100 /uL (3000-5900); Neutrophils Percent Auto 67.9 % (50-75); Platelet Count 199 X10^3/uL (150-400); Red Blood Cell Count 4.01 X10^6/uL (4.5-5.9); Red Cell Distribution Width 13.2 % (11.6-14.8); White Blood Cell Count 8.9 X10^3/uL (4.5-11.0)
[2017-12-20 05:55] LABS: BUN Creatinine Ratio 21.3 (6-22); Blood Urea Nitrogen 17 mg/dL (9-20); Calcium 8.6 mg/dL (8.4-10.2); Chloride 95 mmol/L (98-107); Estimated Glomerular Filt Rate > 60.0 mL/min (>60); Glucose 111 mg/dL (80-110); HEMOLYSIS < 15 (0-50); Potassium 4.1 mmol/L (3.4-5.1); Sodium 136 mmol/L (137-145)
[2017-12-20 05:56] LABS: Carbon Dioxide 39 mmol/L (22-32)
[2017-12-20 06:39] LABS: Vancomycin Trough 16.8 ug/mL (10-20)
[2017-12-20] MEDS: VANCOMYCIN TROUGH 1 REQUEST MISC (06:50)
[2017-12-20] MEDS: MULTIVITAMIN 1 TABLET 1 TAB PO (08:00)
[2017-12-20] MEDS: FOLIC ACID 1 MG TABLET PO (08:00)
[2017-12-20] MEDS: ASPIRIN EC 325 MG TABLET PO (08:01)
[2017-12-20] MEDS: GENTAMICIN 0.1% OINT 30 GM 1 APPLIC TOP (11:26)
[2017-12-20] MEDS: HYDROMORPHONE 1 MG INJ IV (12:02)
--- NOTE | 2017-12-20 15:48 | PM.PN.1 ---
Subjective Date Patient Seen: 12/20/17 Time Patient Seen: 10:00 Interval history: Patient complaining of pain on bilateral feet with dressing changes. He denies fevers or chills Exam Vital Signs (past 8 hours): - 12/20/17 09:06 12/20/17 12:18 Temperature 98.9 F 97.7 F Pulse Rate 92 H 85 Respiratory Rate 18 22 Blood Pressure 132/80 H 145/78 H Pulse Oximetry 92 91 Fraction of Inspired Oxygen 21 Oxygen Delivery Method Room Air Oxygen Flow Rate 0 Narrative Exam Narrative: General: Middle-aged man in no acute distress Lungs: Clear to auscultation bilaterally Heart: Regular rhythm, no murmur appreciated Abdomen: Soft, nontender Extremities: Bilateral lower leg and feet has multiple bullae that was filled with blood. There are 2 large ulcerations on bilateral lateral ft. Multiple hemorrhagic bullae between the toes, on bilateral feet, and lower leg Objective Labs Result Diagrams: 12/20/17 05:30 12/20/17 05:30 Labs: Laboratory Results - last 24 hr 12/20/17 12/20/17 12/20/17 05:30 05:30 05:30 WBC 8.9 RBC 4.01 L Hgb 13.7 Hct 40.6 L MCV 101.4 H MCH 34.2 H MCHC 33.8 RDW 13.2 Plt Count 199 Neut % (Auto) 67.9 Lymph % (Auto) 16.5 L Snyder % (Auto) 10.5 Eos % (Auto) 4.4 H Baso % (Auto) 0.7 Neut # (Auto) 6100 H Sodium 136 L Potassium 4.1 Chloride 95 L Carbon Dioxide 39 H BUN 17 Creatinine 0.80 Estimated GFR > 60.0 BUN/Creatinine Ratio 21.3 Glucose 111 H Calcium 8.6 Vancomycin Trough 16.8 Assessment & Plan Plan: Assessment/Plan Narrative: 1. 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 Risk factors include chronic tobacco use. Lower extremity arterial Doppler ultrasound showed patent vessels with atherosclerotic disease. Echocardiogram was normal with EF 60-65% and normal valves. Abdominal ultrasound was nondiagnostic to rule out AA. MR angiogram of aortoiliac vessels with runoff did not reveal hemodynamically significant stenosis, vascular occlusion or aneurysmal dilation. Sedimentation rate was normal and C reactive protein very low making autoimmune disease unlikely. Also making acute infection unlikely to Consider biopsy. . TSH and hemoglobin A1c normal. Treat with aspirin 325 mg daily. Continue high-dose statin therapy with rosuvastatin 20 mg daily, which was started during this hospital admission. We will continue local wound care. The MRA was also negative no signs of stenosis or significant vascular disease. He does seem to be responding to conservative treatment and placement at a prison type of facility would be appropriate at this point with aching continue with wound care until he can walk better 2. Cellulitis due to 1. One wound culture grew MSSA. He was treated with IV Vanco. Vancomycin was discontinued earlier today. We will start him on oral Bactrim DS 1 tablet orally twice a day for antibacterial coverage. The cellulitis has significantly improved. 3. Disposition: branch operation evaluation manager is working on [facility] facility placement. 3. Mild hyperglycemia. No evidence of diabetes with normal hemoglobin A1c. 4. Mild hypertension. Continue to monitor. Consider treatment if persistently elevated, though avoid at this point to maximize lower extremity microvascular perfusion pressures. 5. Hypoxia. Incidentally noted and possibly due to chronic undiagnosed COPD from tobacco use. CT angio negative for PE 6. Chronic alcohol use. No evidence of withdrawal presently. Monitor on [facility] [place] protocol. 7. DVT prophylaxis: Treat with Lovenox. 8. Code status: Full code. 9. Disposition: Ongoing inpatient status for close monitoring and evaluation of this complex situation.
--- NOTE | 2017-12-20 16:01 | CM.DPC ---
DCP Cont: Called and spoke to Laura at [facility]. Also, faxed notes, including clinicals, wound information, therapy notes. Stated [facility] [place] [facility] and would let us know. This is to get patient the skilled care that he needs. P: Will follow up with [facility] tomorrow, regarding skilled placement Romelia Montez RN/Machine Operators
[2017-12-20] MEDS: SULFA/TRIMETH 800/160 (DS) TABLET 1 TAB PO (20:43)
[2017-12-20] MEDS: ROSUVASTATIN 10 MG TABLET 20 MG PO (20:43)
[2017-12-21] VITALS (8 sets, daily range): BP systolic 123–142; BP diastolic 73–96; PULSE 85–100; RESP 18–22; TEMP 36.2–37; O2SAT 89–97
[2017-12-21] MEDS: OXYCODONE IR 5 MG TABLET 10 MG PO ×5 (00:40→22:26)
--- NOTE | 2017-12-21 06:06 | PC.NURSE ---
Pt is AxOx3, VSS, tolerating room air. Doing much better in terms of pain tolerance, have only given oxycodone once this shift so far. Pt wants to hold off on taking pain meds until he really needs it like when he needs to get up to pee or dangles his feet. Dressing to feet are CDI, b/l legs elevated on pillow. Swelling in lefs/feet bilaterally have gone down significantly since he was first admitted. Pt overall seems to be doing much better. Slept well last night.
[2017-12-21] MEDS: MULTIVITAMIN 1 TABLET 1 TAB PO (09:34)
[2017-12-21] MEDS: FOLIC ACID 1 MG TABLET PO (09:34)
[2017-12-21] MEDS: SULFA/TRIMETH 800/160 (DS) TABLET 1 TAB PO ×2 (09:34→20:59)
[2017-12-21] MEDS: ASPIRIN EC 325 MG TABLET PO (09:34)
--- NOTE | 2017-12-21 11:32 | CM.DPC ---
DCP: Spoke to [facility], they have authorized him for skilled care, but [facility] would have to review the notes to accept him, for they are not contracted with [facility]. Did leave a message with Samara at [facility]. Awaiting phone call. P: Patient is to be discharged today, but need to await call back from [facility] regarding the plan. Romelia Montez RN/Client Director
[2017-12-21] MEDS: GENTAMICIN 0.1% OINT 30 GM 1 APPLIC TOP (12:02)
[2017-12-21] MEDS: HYDROMORPHONE 1 MG INJ IV (12:17)
--- NOTE | 2017-12-21 13:43 | PM.DS.1 ---
History of Present Illness Chief complaint: STATES SWELLING,BLEEDING,PAIN BOTH FEET Narrative: 62-year-old man without primary care provider, living on [facility], has experienced lower extremity sores and ulcers over the past 2 weeks with associated pain, redness and chills. He was seen by his primary care provider and started on antibiotics after topical antifungals did not seem to provide any benefit. As the areas continued to be painful and started bleeding, he sought medical attention at this facility overnight and was admitted for further management and evaluation. He had a lower extremity Doppler performed which showed no significant stenosis. He was given a dose of Levaquin and admitted for further management and evaluation. Discharge Providers Date of admission: 12/14/17 23:59 Primary care physician: Anthony Valenzuela MD Consults: 12/15/17 11:52 Consult to Dietitian, Adult Routine Comment: Reason For Exam: ETOH 12/16/17 11:08 Consult to Physician Routine Comment: Consulting Provider: Anthony Winchester Reason for consultation: LE ulcers Has provider been notified: No Discharge provider: Celina Miranda MD Discharge Date: 12/21/17 Summary Discharge Diagnosis: 1. Multiple ulceration on bilateral lower leg and feet, possibly ischemic due to atheroembolic or cardiovascular. 2. Cellulitis secondary to 1. Hospital Course: 1. Multiple ulceration on bilateral lower leg and feet, possibly ischemic due to atheroembolic or cardiovascular. Risk factor including chronic tobacco abuse. Left lower extremity arterial Doppler ultrasound showed patent blood vessels with atherosclerotic disease. Echocardiogram did not reveal any vegetation. No valvular abnormalities. Abdominal ultrasound was nondiagnostic to rule out abdominal aortic aneurysm. MR angiogram of aorta and iliac vessels with turn off did not reveal hemodynamically significant stenosis, vascular occlusion or aneurysmal dilation. CRP was 4.9. Sedimentation rate was normal. TSH and hemoglobin A1c were normal. He was treated with full-dose aspirin. High dose statin therapy with Crestor 20 mg once a day was started during this hospital admission. He also received local wound care. 2. Cellulitis secondary to 1: Wound culture grew MSSA. He was initially treated with IV vancomycin. Vancomycin was started on December 15, 2017 and discontinued on December 20, 2017. He was started on oral Bactrim DS 1 tablet twice a day on December 20, 2017. Consider discontinue Bactrim after December 25, 2017. 3. Borderline hypertension: His blood pressure is mostly in the range of 130-150 systolic. We will continue monitor his blood pressure readings. Antihypertensive medications were not started during this hospitalization. Status at Discharge Cognitive/behavioral status at discharge: Alert and oriented x3 Functional status at discharge: independent ambulation Overall status at discharge: patient is progressing back to baseline Time Spent with Patient Greater than 30 minutes Exam Vital Signs (past 8 hours): - 12/21/17 08:00 Temperature 98.6 F Pulse Rate 100 H Respiratory Rate 22 Blood Pressure 140/86 H Pulse Oximetry 90 L Fraction of Inspired Oxygen 21 Oxygen Delivery Method Room Air Oxygen Flow Rate 0 Narrative Exam Narrative: General: Middle-age man in no acute distress Lungs: Clear to auscultation bilaterally Heart: Regular rhythm, no murmur appreciated Abdomen: Soft, nontender Extremities: Bilateral lower leg and feet ulcers was rushed in dressing. Objective Imaging Arterial Doppler study: Radiologist's impression: No evidence for hemodynamically significant focal stenosis in either lower extremity Atherosclerotic changes comprising of monophasic waveforms in the popliteal/distal arteries bilaterally. MRA: Radiologist's impression: 1. No areas of hemodynamically significant stenosis, vascular occlusion or aneurysmal dilation. As noted above, distal aspect of the run off vessels bilaterally are poorly characterized secondary to overlapping venous artifact. Underlying areas of atresia and/or stenosis cannot be excluded Labs Result Diagrams: 12/20/17 05:30 12/20/17 05:30 Discharge Plan Discharge Plan Patient Disposition: SNF Transfer to: [facility] Under care of provider: Physician who works at the SNF Transportation: Wheelchair Labs: recheck cbc, ESR, CRP and chem 7 in one week Consult as needed: Dental, Hearing, Mental health, Podiatry and Vision I certify the [facility] care is medically necessary on a continuing basis for any conditions for which he/ she received care during this hospitalization.: Yes The receiving facility has agreed to accept transfer and provide medical treatment.: Yes Discharge Health Status Brief summary of current health status: see summary Multidrug resistant organism: No MDRO MDRO Verified by culture: Yes Date verified: 12/21/17 Precautions: [place] Provider Discharge Instructions Diet: Diet as Tolerated Liquid consistency: Normal/Thin Food texture: Regular Discharge Data Primary Care Provider: Anthony Valenzuela Attending Provider: Celina Miranda Admit Date/Time: 12/14/17 23:59
--- NOTE | 2017-12-21 13:59 | P.DS_ITS ---
History of Present Illness Chief complaint: STATES SWELLING,BLEEDING,PAIN BOTH FEET Narrative: 62-year-old man without primary care provider, living on [facility] , has experienced lower extremity sores and ulcers over the past 2 weeks with associated pain, redness and chills. He was seen by his primary care provider and started on antibiotics after topical antifungals did not seem to provide any benefit. As the areas continued to be painful and started bleeding, he sought medical attention at this facility overnight and was admitted for further management and evaluation. He had a lower extremity Doppler performed which showed no significant stenosis. He was given a dose of Levaquin and admitted for further management and evaluation. Discharge Providers Date of admission: 12/14/17 23:59 Primary care physician: Anthony Valenzuela MD Consults: 12/15/17 11:52 Consult to Dietitian, Adult Routine Comment: Reason For Exam: ETOH 12/16/17 11:08 Consult to Physician Routine Comment: Consulting Provider: Anthony Winchester Reason for consultation: LE ulcers Has provider been notified: No Discharge provider: Celina Miranda MD Discharge Date: 12/21/17 Summary Discharge Diagnosis: 1. Multiple ulceration on bilateral lower leg and feet, possibly ischemic due to atheroembolic or cardiovascular. 2. Cellulitis secondary to 1. Hospital Course: 1. Multiple ulceration on bilateral lower leg and feet, possibly ischemic due to atheroembolic or cardiovascular. Risk factor including chronic tobacco abuse. Left lower extremity arterial Doppler ultrasound showed patent blood vessels with atherosclerotic disease. Echocardiogram did not reveal any vegetation. No valvular abnormalities. Abdominal ultrasound was nondiagnostic to rule out abdominal aortic aneurysm. MR angiogram of aorta and iliac vessels with turn off did not reveal hemodynamically significant stenosis, vascular occlusion or aneurysmal dilation. CRP was 4.9. Sedimentation rate was normal. TSH and hemoglobin A1c were normal. He was treated with full-dose aspirin. High dose statin therapy with Crestor 20 mg once a day was started during this hospital admission. He also received local wound care. 2. Cellulitis secondary to 1: Wound culture grew MSSA. He was initially treated with IV vancomycin. Vancomycin was started on December 15, 2017 and discontinued on December 20, 2017. He was started on oral Bactrim DS 1 tablet twice a day on December 20, 2017. Consider discontinue Bactrim after December 25, 2017. 3. Borderline hypertension: His blood pressure is mostly in the range of 130- 150 systolic. We will continue monitor his blood pressure readings. Antihypertensive medications were not started during this hospitalization. Status at Discharge Cognitive/behavioral status at discharge: Alert and oriented x3 Functional status at discharge: independent ambulation Overall status at discharge: patient is progressing back to baseline Time Spent with Patient Greater than 30 minutes Exam Vital Signs (past 8 hours): - 12/21/17 08:00 Temperature 98.6 F Pulse Rate 100 H Respiratory Rate 22 Blood Pressure 140/86 H Pulse Oximetry 90 L Fraction of Inspired Oxygen 21 Oxygen Delivery Method Room Air Oxygen Flow Rate 0 Narrative Exam Narrative: General: Middle-age man in no acute distress Lungs: Clear to auscultation bilaterally Heart: Regular rhythm, no murmur appreciated Abdomen: Soft, nontender Extremities: Bilateral lower leg and feet ulcers was rushed in dressing. Objective Imaging Arterial Doppler study: Radiologist's impression: No evidence for hemodynamically significant focal stenosis in either lower extremity Atherosclerotic changes comprising of monophasic waveforms in the popliteal/ distal arteries bilaterally. MRA: Radiologist's impression: 1. No areas of hemodynamically significant stenosis, vascular occlusion or aneurysmal dilation. As noted above, distal aspect of the run off vessels bilaterally are poorly characterized secondary to overlapping venous artifact. Underlying areas of atresia and/or stenosis cannot be excluded Labs Result Diagrams: 12/20/17 05:30 12/20/17 05:30 Discharge Plan Discharge Plan Patient Disposition: SNF Transfer to: [facility] Under care of provider: Physician who works at the SNF Transportation: Wheelchair Labs: recheck cbc, ESR, CRP and chem 7 in one week Consult as needed: Dental, Hearing, Mental health, Podiatry and Vision I certify the postop hospital [facility] care is medically necessary on a continuing basis for any conditions for which he/ she received care during this hospitalization.: Yes The receiving facility has agreed to accept transfer and provide medical treatment.: Yes Discharge Health Status Brief summary of current health status: see summary Multidrug resistant organism: No MDRO MDRO Verified by culture: Yes Date verified: 12/21/17 Precautions: [place] Provider Discharge Instructions Diet: Diet as Tolerated Liquid consistency: Normal/Thin Food texture: Regular Discharge Data Primary Care Provider: Anthony Valenzuela Attending Provider: Celina Miranda Admit Date/Time: 12/14/17 23:59
--- NOTE | 2017-12-21 15:21 | PC.NURSE ---
Pts dressings to bilateral legs both changed. Please see under physical assessment for details. Pt given 1mg of dilaudid before and also give percolone for 6/10 pain this am. Up to bathroom independently and voiding. States no bm this morning. Plan for discharge, may be to go to [facility]. planner/scheduler Jazmine is waiting to hear back from them. he is resting comfortably.
--- NOTE | 2017-12-21 15:25 | CM.DPC ---
DCP Cont: Have been attempting to get patient to [facility]. [facility] can't take patient, since he has [facility]. Have been trying [facility]. Talked to Samara at [facility], and stated that [facility] would only pay them so much, but to contact Tammy at [facility]. Called Tammy, gave her information regarding wound care, and let her know that patient is on oral antibiotics. Let her know that he is also on topical Gentamycin. Stated that she would have to review with their doctor, before letting us know regarding authorization. Faxed over wound note from Dr. Winchester, as well. Have discharge orders, should we receive authorization. If questions, Tammy from [facility] contact number is: [phone], ext: [phone] P: Need to await approval from [facility], which is pending discharge to [facility]. Romelia Montez RN/Syrup Maker Cook
[2017-12-21] MEDS: ROSUVASTATIN 10 MG TABLET 20 MG PO (20:59)
[2017-12-21] MEDS: SODIUM CHLORIDE 0.9% FLUSH 10 ML IV (20:59)
[2017-12-22] VITALS (10 sets, daily range): BP systolic 119–154; BP diastolic 68–90; PULSE 82–94; RESP 16–20; TEMP 36.1–36.9; O2SAT 90–94
[2017-12-22] MEDS: ACETAMINOPHEN 325 MG TABLET 650 MG PO ×2 (02:25→09:08)
[2017-12-22] MEDS: OXYCODONE IR 5 MG TABLET 10 MG PO ×5 (02:28→19:59)
[2017-12-22] MEDS: SODIUM CHLORIDE 0.9% FLUSH 10 ML IV ×2 (09:08→13:48)
[2017-12-22] MEDS: ASPIRIN EC 325 MG TABLET PO (09:08)
[2017-12-22] MEDS: FOLIC ACID 1 MG TABLET PO (09:08)
[2017-12-22] MEDS: SULFA/TRIMETH 800/160 (DS) TABLET 1 TAB PO ×2 (09:09→20:37)
[2017-12-22] MEDS: MULTIVITAMIN 1 TABLET 1 TAB PO (09:09)
[2017-12-22] MEDS: HYDROMORPHONE 1 MG INJ IV (13:47)
[2017-12-22] MEDS: GENTAMICIN 0.1% OINT 30 GM 1 APPLIC TOP (13:48)
--- NOTE | 2017-12-22 19:14 | PC.NURSE ---
Mostly in bed with BL LE's elevated. Actively ankle waving and calf pumping in bed. Dozes easily after receiving oxycodone for pain /10. Up independently to toilet. Prunes for bowel function. Calm, cooperative. Kerlix secured with netting in place to wounds BL LE's.
--- NOTE | 2017-12-22 20:16 | PC.NURSE ---
Pt c/o increasing abdominal discomfort r/t constipation. Dr. Rodríguez was notified by telephone and orders received for bowel meds.
[2017-12-22] MEDS: ROSUVASTATIN 10 MG TABLET 20 MG PO (20:37)
[2017-12-22] MEDS: DOCUSATE 100 MG CAPSULE PO (21:11)
[2017-12-22] MEDS: MAGNESIUM HYDROXIDE 30 ML UDC PO (21:11)
[2017-12-23] VITALS (7 sets, daily range): BP systolic 123–141; BP diastolic 72–79; PULSE 85–97; RESP 16–20; TEMP 36.7–37.3; O2SAT 92–95
[2017-12-23] MEDS: OXYCODONE IR 5 MG TABLET 10 MG PO ×6 (00:03→22:35)
[2017-12-23] MEDS: MULTIVITAMIN 1 TABLET 1 TAB PO (08:28)
[2017-12-23] MEDS: SULFA/TRIMETH 800/160 (DS) TABLET 1 TAB PO ×2 (08:28→22:37)
[2017-12-23] MEDS: ASPIRIN EC 325 MG TABLET PO (08:28)
[2017-12-23] MEDS: FOLIC ACID 1 MG TABLET PO (08:28)
[2017-12-23] MEDS: DOCUSATE 100 MG CAPSULE PO ×2 (08:28→22:37)
--- NOTE | 2017-12-23 09:09 | CM.DPC ---
Addendum entered by Farzaneh Fofana LPN 12/23/17 14:12: wound care info gathered from chart with assist of ERIC Mehta. Included EZ Graft markings. Faxed now to [facility] Original Note: DCP: continued: Case received, EMR reviewed, conferred with ERIC Roblero and met with pt re the current d/c plan: noted to be [facility] pending [facility] authorization. Pt confirms that he plans the snf setting, although at this point he is on oral antibiotics and is mobilizing in his room independently. Pt says the dressing changes are such that he cannot do them himself and without home health services and someone to assist him this is not possible at home. Pt does not have a PCP, uses the urgent care clinic on [address], says he does not plan to get a PCP, I really don't need one or want one. He cannot access HH services without a PCP. Pt wondered about a SNF on the [facility] as the list I got has a [facility] facility listed. Explained that this facility is closed and no others are on the [facility]. [facility] cannot accept Lara. He says he is agreeable to [facility] because I can't go home like this. Discussed with ERIC Roblero. She confirms daily dressing changes bilateral LE. Will plan to observe today during the dressing change. Discussed obtaining updated documentation re wounds so that case for snf can be continued. Discussed case with Dr. Rodríguez/hospitalist as no physician has followed pt since Dr. Miranda's d/c on 12/21. He ok's a PT order as therapy has not worked with him and thus far his mobility is limited to his room and, per RN, limited by pain. Called [facility] and spoke with church business administrator Stanislav. He confirms that they can accept pt and provide transportation once [facility]ara has authorized but this likely will not occur until Sunday. He confirms that Samara has been working on case in coordination with DC program services planner ERIC Lucero and that the discussion will continue on . Agreed to fax updated info to Samara today to help with the insurance authorization of this case.
--- NOTE | 2017-12-23 13:30 | PT.IIE ---
Current Diagnoses Non-pressure chronic ulcer of other part of right lower leg with fat layer exposed (12/14/17) Non-pressure chronic ulcer of other part of left lower leg with fat layer exposed (12/14/17) Medical History (Last Reviewed 12/17/17 @ 13:39 by Anthony Winchester MD) Alcohol abuse (Acute) Tobacco abuse (Acute) Physical Therapy Inpatient Evaluation/Re-Eval M1 PT/OT-IP Prior Functional Status Start: 12/23/17 13:54 Freq: Status: Active Protocol: Document 12/23/17 13:30 [facility] (Rec: 12/23/17 14:[address] [facility] [id number]) Medical Review Prior Functional Status Medical History Reviewed Yes Diet/Fluid Consistency Regular Communication WNL Mobility and Gait indep. community gait without device Activities of Daily Living and IADL's indep. I/ADLs Social History Household Members none Living Arrangements Apartment/Condo Number of Floors (Floors) One Floor Number of Stairs To Enter/Railing? none Home Environment Standard Height Toilet Walk in Shower Additional Social History Comment Pt lives in a cabin on [address]. His daughter lives [place], pt is unsure if she can assist him all of the time. M2 PT-IP Current Condition Start: 12/23/17 13:54 Freq: Status: Active Protocol: Document 12/23/17 13:30 [facility] (Rec: 12/23/17 14:[address] [facility] [id number]) Physical Therapy Current Condition Current Condition Evaluation Date 12/23/17 Treatment Diagnosis BLE cellulitis, chronic lower leg and foot ulcers B, impaired gait Onset Date 12/14/17 Precautions Other Precautions BLE and foot wounds. M3 PT-IP Subjective Start: 12/23/17 13:54 Freq: Status: Active Protocol: Document 12/23/17 13:30 [facility] (Rec: 12/23/17 14:[address] [facility] [id number]) Subjective Physical Therapy Visit Type Type Initial Evaluation Visit Start Time 13:15 Visit Stop Time 13:30 Total Visit Minutes 15 Number of FAMILY DINNER SERVICE SPECIALIST Visits 0 Physical Therapy Visit Comments Patient Comments Pt notes that he is not sure if he can change his own bandages. He refused the gait belt and refused to wear shoes or non-slip socks. Short Term Goals decrease pain Therapy Pain Assessment Pain When Pain Assessed At Rest Pain Present Pain Present Pain Reported Location Bilateral Foot Intensity 5 Scale Used Numeric (1 - 10) Description Burning M4 PT-IP Mobility and Gait Start: 12/23/17 13:54 Freq: Status: Active Protocol: Document 12/23/17 13:30 [facility] (Rec: 12/23/17 14:[address] [facility] [id number]) PT-Bed Mobility Assessment Supine to Sit Supine to Sit Independent Sit to Supine Sit to Supine Independent Scooting Scooting to Edge of Bed Independent PT-Transfer Assessment Sit to and From Stand Sit to and from Stand Independent Equipment Transfer Assistive Device None Transfers Transfer Destination Bed Transfer Technique Stand Step Pivot Transfer Ability Level of Assist Independent Gait Assessment Gait Gait Assistance Required: Standby Assistance Distance (Feet) (feet) 75 Assistive Devices Assistive Device None Orthotic/Prosthetic Devices or Brace: No Gait Deviations General Gait Pattern Antalgic Decreased Stride Length Wide Based Gait Factors Limiting Gait Function Factors Limiting Gait Function Decreased Activity Tolerance Pain Comments Gait Comments pt notes pain increased to 6/ 10 with ambulation. PT-Balance Assessment Sitting Balance and Reactions Static Sitting Balance Ability Normal Dynamic Sitting Balance Ability Normal Standing Balance and Reactions Static Standing Balance Ability Good Dynamic Standing Balance Ability Fair Device Used none M5 PT-IP Objective Assessments Start: 12/23/17 13:54 Freq: Status: Active Protocol: Document 12/23/17 13:30 [facility] (Rec: 12/23/17 14:[address] [facility] [id number]) Orientation Orientation/Cognition Level of Alertness Alert Orientation Name Age Birthday Month Date Year Day of Week Place Situation Language Function Ability No Deficits Noted Memory Description No Deficits Noted M6 PT-IP Treatment Start: 12/23/17 13:54 Freq: Status: Active Protocol: Document 12/23/17 13:[address] [facility] (Rec: 12/23/17 14:[address] [facility] [id number]) Physical Therapy Treatment Education Education Provided Safety M7 PT-IP Assessment and Plan Start: 12/23/17 13:54 Freq: Status: Active Protocol: Document 12/23/17 13:30 [facility] (Rec: 12/23/17 14:[address] [facility] [id number]) PT Summary Assessment and Plan Potential Rehabilitation Potential Good Status of Condition at Evaluation Evolving Summary Impairments Pain Gait Activity Tolerance Assessment Summary Pt with BLE ulcers and open wounds, impairing his ability to tolerance prolonged ambulation and standing due to pain. Pt is able to perform transfers and bed mobility independently, and requires SBA with no assistive device. Pt's d/c plan likely more related to his wound healing and medical stability vs. his mobility. Pt does not have a secure parking spot at home, and may have to walk for a prolonged period of time (3-4 mins), and may not be able to change his own dressings independently. Overall, pt likely would benefit from SNF rehabilitation to continue to monitor and improve the condition of his wounds, but at this time likely more medical-based vs. impaired mobility (he can walk short distances but increased pain). He would benefit from continued skilled physical therapy 1x/day to promote increased activity level and mobility, as well as skilled progression and monitoring of mobility with evolving situation of poor/delayed healing wounds. Goals Bed Mobility Goal Independent Transfer Goal Independent Gait Goal Independent Gait Distance 300 Frequency of Treatment Frequency Of Treatment Once a Day Treatment Plan Physical Therapy Treatment Plan Gait Training Therapeutic Exercise Discharge Planning Neuromuscular Re-ed Recommendations To Nursing Amount of Assist Needed Standby Assistance Discharge Recommendations PT Discharge Recommendations SNF Rehab Other Discharge Recommendations SNF rehab vs. home with assistance (would benefit from but pt does not qualify d/ t not having/wanting a PCP)
[2017-12-23] MEDS: GENTAMICIN 0.1% OINT 30 GM 1 APPLIC TOP (15:00)
[2017-12-23] MEDS: BISACODYL 10 MG SUPP PR (15:39)
[2017-12-23] MEDS: ROSUVASTATIN 10 MG TABLET 20 MG PO (22:36)
[2017-12-23] MEDS: MAGNESIUM HYDROXIDE 30 ML UDC PO (22:36)
[2017-12-24 00:03] VITALS: BP 134/80; PULSE 83; RESP 18; TEMP 36.8; O2SAT 93
--- NOTE | 2017-12-24 00:34 | PC.NURSE ---
Addendum entered by Laura Mares R.N. 12/24/17 04:28: States pain is currently 4/10 but tolerable and declines offer of pain medication Original Note: Addendum entered by Laura Mares R.N. 12/24/17 01:48: Medicated with Oxycodone for complaint of 5/10 bilateral LE burning pain. Original Note: Patient is alert and oriented. Breath sounds very diminished throughout; states he smoked up until 1 week ago. RA sat 93%. HRR. Denies nausea. BT present and abdomen is soft. Large bruise noted in LUQ of abdomen. Also has bruising on bilateral UE from IV sticks. Independent with mobility. Dressings to feet/ bilateral LE are CDI. Complains of 6/10 pain in bilateral feet and knows he can have more pain medication at 0130; requests not to be awakened if he is asleep. Pedal pulse stronger on right than left but both present. Left foot is tender on plantar surface when touched. Fall risk score is low.
[2017-12-24] MEDS: OXYCODONE IR 5 MG TABLET 10 MG PO ×4 (01:47→16:20)
[2017-12-24 05:15] VITALS: BP 110/72; PULSE 87; RESP 18; TEMP 36.8; O2SAT 93
[2017-12-24 07:25] VITALS: BP 131/75; PULSE 101; RESP 16; TEMP 36.7; O2SAT 93
[2017-12-24] MEDS: MULTIVITAMIN 1 TABLET 1 TAB PO (08:01)
[2017-12-24] MEDS: SULFA/TRIMETH 800/160 (DS) TABLET 1 TAB PO (08:01)
[2017-12-24] MEDS: FOLIC ACID 1 MG TABLET PO (08:01)
[2017-12-24] MEDS: ASPIRIN EC 325 MG TABLET PO (08:01)
[2017-12-24] MEDS: DOCUSATE 100 MG CAPSULE PO (08:01)
--- NOTE | 2017-12-24 11:41 | CM.DPC ---
DCP Cont: Spoke to Samara at [facility], stated that she is still working on the case, and has no update as of yet regarding authorization. Stated that they may have to accept him as a Medicaid patient, but will let this manager rn case know today. Did discuss getting primary doctor with patient, and let him know if he could establish appt within the next 30 days, and if provider would follow him prior to appt, home health would be an option. [facility] is the only agency that goes to the [facility], and are not contracted with [facility]. Patient is aware of this. Had conference with patient, daughter and friend. Updated them that this is pending call back from Samara at [facility]. Other option is for patient to go home, and daughter who lives nearby can do daily dressing changes, but would need to follow up with wound clinic. Patient stated that sometimes, transportation is an issue from his home to the [facility]. P: Will wait to hear back from [facility], if they refuse patient, will need to have family consent to assist with wound care, and he will need to make wound clinic appts. Romelia Montez RN/Suction Dredge Dumping Supervisor
--- NOTE | 2017-12-24 11:52 | PT.IPTN ---
Current Diagnoses Non-pressure chronic ulcer of other part of right lower leg with fat layer exposed (12/14/17) Non-pressure chronic ulcer of other part of left lower leg with fat layer exposed (12/14/17) Physical Therapy Treatment Note M2 PT-IP Current Condition Start: 12/23/17 13:54 Freq: Status: Active Protocol: Document 12/23/17 13:30 RCC (Rec: 12/23/17 14:06 RCC [email or web address]) Physical Therapy Current Condition Current Condition Evaluation Date 12/23/17 Treatment Diagnosis BLE cellulitis, chronic lower leg and foot ulcers B, impaired gait Onset Date 12/14/17 Precautions Other Precautions BLE and foot wounds. M3 PT-IP Subjective Start: 12/23/17 13:54 Freq: Status: Active Protocol: Document 12/24/17 11:10 CLB (Rec: 12/24/17 11:52 CLB [id number]) Subjective Physical Therapy Visit Type Type Treatment Note Visit Start Time 11:10 Visit Stop Time 11:30 Total Visit Minutes 20 Number of DRIVER/MERCHANDISER Visits 1 Physical Therapy Visit Comments Patient Comments Pt notes that he is not sure if he can change his own bandages. He refused the gait belt and refused to wear shoes or non-slip socks. Short Term Goals decrease pain Therapy Pain Assessment Pain When Pain Assessed During Mobility Pain Present Pain Present Pain Reported Location Bilateral Foot Intensity 5 Scale Used Numeric (1 - 10) Description Burning M4 PT-IP Mobility and Gait Start: 12/23/17 13:54 Freq: Status: Active Protocol: Document 12/24/17 11:10 CLB (Rec: 12/24/17 11:52 CLB [id number]) PT-Bed Mobility Assessment Scooting Scooting to Edge of Bed Independent PT-Transfer Assessment Sit to and From Stand Sit to and from Stand Independent Equipment Transfer Assistive Device None Transfers Transfer Destination Bed Transfer Technique Stand Step Pivot Transfer Ability Level of Assist Independent Gait Assessment Gait Gait Assistance Required: Standby Assistance Distance (Feet) (feet) 200 Assistive Devices Assistive Device None Orthotic/Prosthetic Devices or Brace: No Gait Deviations General Gait Pattern Antalgic Decreased Stride Length Wide Based Gait Factors Limiting Gait Function Factors Limiting Gait Function Decreased Activity Tolerance Pain Comments Gait Comments pt notes pain increased to 5/ 10 with ambulation. M5 PT-IP Objective Assessments Start: 12/23/17 13:54 Freq: Status: Active Protocol: Document 12/23/17 13:30 RCC (Rec: 12/23/17 14:06 RCC [email or web address]) Orientation Orientation/Cognition Level of Alertness Alert Orientation Name Age Birthday Month Date Year Day of Week Place Situation Language Function Ability No Deficits Noted Memory Description No Deficits Noted M6 PT-IP Treatment Start: 12/23/17 13:54 Freq: Status: Active Protocol: Document 12/23/17 13:30 RCC (Rec: 12/23/17 14:06 RCC [email or web address]) Physical Therapy Treatment Education Education Provided Safety M7 PT-IP Assessment and Plan Start: 12/23/17 13:54 Freq: Status: Active Protocol: Document 12/24/17 11:10 CLB (Rec: 12/24/17 11:52 CLB [id number]) PT Summary Assessment and Plan Potential Rehabilitation Potential Good Summary Assessment Summary Pt able to ambulate further in [place] with increased pain 5/10 . Pt continues to be concerned with home situation due to wound care and distance it takes to get from his car to his door. Pt would benefit from SNF rehab for wound care. Goals Bed Mobility Goal Independent Transfer Goal Independent Gait Goal Independent Frequency of Treatment Frequency Of Treatment Once a Day Treatment Plan Physical Therapy Treatment Plan Gait Training Therapeutic Exercise Discharge Planning Neuromuscular Re-ed Recommendations To Nursing Amount of Assist Needed Standby Assistance Discharge Recommendations PT Discharge Recommendations SNF Rehab Other Discharge Recommendations SNF rehab vs. home with assistance (would benefit from but pt does not qualify d/ t not having/wanting a PCP)
[2017-12-24 12:05] VITALS: BP 140/61; PULSE 86; RESP 16; TEMP 36.9; O2SAT 92
--- NOTE | 2017-12-24 12:54 | CM.DPC ---
DCP Cont: Spoke to Samara at [facility]. Stated that she was going to talk to her sales office administrator to see if they could accept patient as a Medicaid patient, for [facility] denied authorization for wound care, She called back and stated that they could not accept him as Medicaid, for they are full on their Medicaid beds. P: Patient will discharge home, paged Dr. Grover for updated discharge orders. Family to be taught wound care, and will have to follow up at wound clinic Romelia Montez RN/Svp Chief Marketing Officer
--- NOTE | 2017-12-24 15:00 | CM.DPC ---
DCP: Patient will be going home today. Contacted wound clinic to inquire if they take [place], which they do, and patient does not need co-payment. Patient is wanting to follow up at clinic at [place], rather than going to wound clinic, but will keep idea opened. P: Patient to discharge home, wound care to be done by family. Romelia Montez
--- NOTE | 2017-12-24 15:34 | PM.DS.1 ---
History of Present Illness Chief complaint: STATES SWELLING,BLEEDING,PAIN BOTH FEET Discharge Providers Date of admission: 12/14/17 23:59 Primary care physician: Anthony Valenzuela MD Consults: 12/15/17 11:52 Consult to Dietitian, Adult Routine Comment: Reason For Exam: ETOH 12/16/17 11:08 Consult to Physician Routine Comment: Consulting Provider: Anthony Winchester Reason for consultation: LE ulcers Has provider been notified: No 12/23/17 08:54 Consult to Physical Therapy Evaluate & Treat Comment: Physician Instructions: Evaluate and Treat Discharge provider: Ayan Grover MD Summary Discharge Diagnosis: 1. Bilateral lower extremity ulcerations, possibly infection related Hospital Course: Patient presented with numerous ulcerations on bilateral lower extremities. Wound Care was consulted. Multiple imaging modalities including lower extremity arterial duplex ultrasound, MR angiogram, echo and abdominal ultrasound did not reveal any atheroembolic or other lower extremity ischemic causes of these ulcerations. CRP was 4.9. Sedimentation rate was normal. TSH and hemoglobin A1c were normal. Wound culture did grow methicillin sensitive staphylococcal aureus. He was treated with IV antibiotics followed by Bactrim. We have been applying local wound care with gentamicin ointment, debriding gel, foam and gauze wrapping per wound care recommendations. He did not developed any new lesions on his legs during this admission. He will follow up with a provider on [facility]. He did not feel like he would be able to come to [facility] for outpatient therapy. He is advised to see Dermatology if he develops new lesions in which case biopsy would be very helpful. Patient's daughter will help him with wound care dressing changes. We had hoped to get him in to custodial facility to facilitate wound care but his insurance denied. Status at Discharge Functional status at discharge: independent ambulation Time Spent with Patient Greater than 30 minutes Exam Vital Signs (past 8 hours): - 12/24/17 12:05 Temperature 98.5 F Pulse Rate 86 Respiratory Rate 16 Blood Pressure 140/61 H Pulse Oximetry 92 Fraction of Inspired Oxygen 21 Oxygen Delivery Method Room Air Oxygen Flow Rate 0 Objective Labs Result Diagrams: 12/20/17 05:30 12/20/17 05:30 Discharge Plan Discharge Plan Patient Disposition: Home, Self-Care Provider Discharge Instructions Diet: Diet as Tolerated Discharge Data Primary Care Provider: Anthony Valenzuela Attending Provider: Celina Miranda Admit Date/Time: 12/14/17 23:59
--- NOTE | 2017-12-24 15:41 | P.DS_ITS ---
History of Present Illness Chief complaint: STATES SWELLING,BLEEDING,PAIN BOTH FEET Discharge Providers Date of admission: 12/14/17 23:59 Primary care physician: Anthony Valenzuela MD Consults: 12/15/17 11:52 Consult to Dietitian, Adult Routine Comment: Reason For Exam: ETOH 12/16/17 11:08 Consult to Physician Routine Comment: Consulting Provider: Anthony Winchester Reason for consultation: LE ulcers Has provider been notified: No 12/23/17 08:54 Consult to Physical Therapy Evaluate & Treat Comment: Physician Instructions: Evaluate and Treat Discharge provider: Ayan Grover MD Summary Discharge Diagnosis: 1. Bilateral lower extremity ulcerations, possibly infection related Hospital Course: Patient presented with numerous ulcerations on bilateral lower extremities. Wound Care was consulted. Multiple imaging modalities including lower extremity arterial duplex ultrasound, MR angiogram, echo and abdominal ultrasound did not reveal any atheroembolic or other lower extremity ischemic causes of these ulcerations. CRP was 4.9. Sedimentation rate was normal. TSH and hemoglobin A1c were normal. Wound culture did grow methicillin sensitive staphylococcal aureus. He was treated with IV antibiotics followed by Bactrim. We have been applying local wound care with gentamicin ointment, debriding gel, foam and gauze wrapping per wound care recommendations. He did not developed any new lesions on his legs during this admission. He will follow up with a provider on [facility]. He did not feel like he would be able to come to [facility] for outpatient therapy. He is advised to see Dermatology if he develops new lesions in which case biopsy would be very helpful. Patient's daughter will help him with wound care dressing changes. We had hoped to get him in to retirement facility to facilitate wound care but his insurance denied. Status at Discharge Functional status at discharge: independent ambulation Time Spent with Patient Greater than 30 minutes Exam Vital Signs (past 8 hours): - 12/24/17 12:05 Temperature 98.5 F Pulse Rate 86 Respiratory Rate 16 Blood Pressure 140/61 H Pulse Oximetry 92 Fraction of Inspired Oxygen 21 Oxygen Delivery Method Room Air Oxygen Flow Rate 0 Objective Labs Result Diagrams: 12/20/17 05:30 12/20/17 05:30 Discharge Plan Discharge Plan Patient Disposition: Home, Self-Care Provider Discharge Instructions Diet: Diet as Tolerated Discharge Data Primary Care Provider: Anthony Valenzuela Attending Provider: Celina Miranda Admit Date/Time: 12/14/17 23:59
--- NOTE | 2017-12-24 16:04 | PC.NURSE ---
Per Dr. Grover, patient will be discharging to home today and following up with a PCP (patient to establish) for continued wound care. Patient finding it too challenging to commute to [place] to be seen at the wound care clinic. Patient's dressings changed and patient's daughter and his friend instructed on how to changed dressings to both feet. They all state understanding of instructions and home care, including signs and symptoms to watch for for infection. 2 days of supplies given to patient, and MD will be writing prescription for ointment and pain medications. Patient will need to purchase wound care dressings for home. Patient tolerated dressing changes and will be leaving when discharge orders and paperwork processed. Update given to evening shift RN to assume care.
--- NOTE | 2017-12-24 16:50 | PC.NURSE ---
Patient medicated with 2 tabs Oxycodone for bayron LE pain 11/11 after drsg change. Osbaldo RN in room to do drsg change and give daughter teaching for DC. DC paperwork reviewed, 2 prescriptions given to patient. His daughter and his ex here at time of DC instructions. Pt assisted into wheelchair and taken to front entrance where his ex drove him away in private car. Priority boarding pass for [place] 7:20pm, dc instructions & all belongings sent with them. He is aware to follow up with physician on [facility] in 3-5 days and to call & make own appointment.
== END 2017-12-24 16:30 | disposition home or self-care (01) | DRG 197 ==
LOC: ED 19:26 → AC 12-15
PROVIDERS: Internal Medicine; Admitting Provider Internal Medicine; Emergency Provider Emergency Medicine; PCP Family Medicine; Visit Provider Internal Medicine
DX: I96 Gangrene, not elsewhere classified (principal); L97.821 Non-pressure chronic ulcer of other part of left lower leg limited to breakdown of skin; L03.116 Cellulitis of left lower limb; L03.115 Cellulitis of right lower limb; I75.89 Atheroembolism of other site; L97.811 Non-pressure chronic ulcer of other part of right lower leg limited to breakdown of skin; R09.02 Hypoxemia; F17.210 Nicotine dependence, cigarettes, uncomplicated; R73.9 Hyperglycemia, unspecified; L97.421 Non-pressure chronic ulcer of left heel and midfoot limited to breakdown of skin; L97.411 Non-pressure chronic ulcer of right heel and midfoot limited to breakdown of skin; R03.0 Elevated blood-pressure reading, without diagnosis of hypertension; B95.61 Methicillin susceptible Staphylococcus aureus infection as the cause of diseases classified elsewhere
CPT/HCPCS: 36415; 36591; 71045; 71275; 76705; 80048; 80053; 80061; 80202; 83036; 83605; 83690; 83880; 84145; 84443; 85025; 85610; 85651; 85730; 86140; 87040; 87070; 87075; 87077; 87147; 87186; 87205; 93005; 93306; 93925; 94760; 96365; 96366; 96368; 96375; 96376; 97116; 97162; 99284; 99285; 99406; C8902; C8912; C8918; A9579; J1170; J1650; J1956; J3370; Q9967

== ENCOUNTER 2017-12-27 14:16 | Emergency (ER) | payer OTHER, MEDICAID, SELFPAY ==
[2017-12-15 00:09] VITALS: BMI 30.5
[2017-12-27 14:42] VITALS: BP 114/80; PULSE 111; RESP 18; TEMP 36.6; O2SAT 94
--- NOTE | 2017-12-27 15:50 | PC.NURSE ---
patient is here with a rash to bilateral lower extremities that started 1 month ago but has progressively gotten worse over the past 3 days. patient reports that his feet will drain pus/bleed. patient has no other complaints.
--- NOTE | 2017-12-27 16:03 | ED_ITS ---
HPI - Skin/Abscess/Foreign Bdy General Chief complaint: Skin/Abscess/Foreign Body Stated complaint: lesions on lower legs, arms, hands Time Seen by Provider: 12/27/17 15:43 Source: patient Mode of arrival: ambulatory Limitations: no limitations History of Present Illness HPI narrative: Patient is a 62-year-old male sent over from the medical clinic on [facility] for concern of worsening lesions on his lower extremities and spreading of the rash to his abdomen and upper extremities. Upon review of the patient's medical record he was recently discharged from this hospital after staying here for concerns of cellulitis to bilateral lower extremities. During that stay the patient was on antibiotics to include vancomycin and Bactrim. It appeared that cultures of his wound did grew out MSSA. Patient was also evaluated by wound care during his hospital stay. It appeared the patient had a workup for concerns of emboli causing his problems to include what he had said were MRIs of his lower extremities. According to the review of the notes it appeared that after this extensive workup the admitting providers thought that cellulitis was unlikely and discharge the patient with instructions to follow up with his primary care doctor and also wound care and to discuss referral to see dermatology. According to the discharge note at also stated that there was an attempt to place the patient in a fdc facility for wound care [place] [facility] for wound care. According to that note it stated that the patient's insurance company denied this request so the patient was discharged with instructions to follow up with his primary doctor. Patient did follow up with the clinic today. Patient states that since he was discharged from the hospital he feels that the lesions on his feet have improved somewhat. He states that they are woven blind loom tender. He has been doing dressing changes on his own at home. He now states that over the past several days he has lesions on his upper legs on his lower abdomen and on his lower back and on his arms that appear similar to what lesions on his feet started out as. He states these lesions burned. No itching. No new exposures. No fevers. Related Data Home Medications Medication Instructions Recorded Confirmed oxycodone 5 - 10 mg PO Q6HR PRN 12/27/17 12/27/17 Previous Rx's Medication Instructions Recorded gentamicin 1 applictn TOP DAILY #30 gram 12/24/17 docusate sodium 100 mg PO BID PRN #10 cap 12/27/17 oxycodone-acetaminophen 2 tab PO Q4-6H PRN #20 tab 12/27/17 sulfamethoxazole-trimethoprim 1 tab PO BID 7 Days #14 tab 12/27/17 Allergies Allergy/AdvReac Type Severity Reaction Status Date / Time No Known Drug Allergies Allergy Verified 12/27/17 14:46 Review of Systems Constitutional Denies fatigue and Denies fever(s) ENT Ears, Nose, Mouth, and Throat: Denies lip swelling, Denies mouth lesions, Denies mouth pain, Denies throat swelling and Denies tongue swelling Cardiovascular Denies chest pain, Denies palpitations and Denies dyspnea Respiratory Denies cough and Denies dyspnea Gastrointestinal Gastrointestinal: Denies abdominal pain, Denies diarrhea, Denies nausea and Denies vomiting Genitourinary Denies dysuria Comments: No testicular pain Musculoskeletal Denies back pain, Denies myalgias, Denies arthralgias, Denies joint swelling and Denies muscle cramps Integumentary/Breasts Reports lesions, Reports new lesions, Reports erythema, Reports rash, Reports skin ulcer, Reports sores and Reports wounds Neurologic Denies behavioral changes and Denies confusion Psychiatric Denies behavioral changes and Denies confusion Endocrine Denies fatigue, Denies flushing and Denies palpitations Hematologic/Lymphatic Denies easy bleeding and Denies easy bruising Allergic/Immunologic Denies urticaria, Denies lip swelling, Denies throat swelling and Denies tongue swelling PFS Medical History Alcohol abuse (Acute) Tobacco abuse (Acute) Family History Father Diabetes mellitus Mother Diabetes mellitus Social History household members: none Smoking Status: Current every day smoker Comment: I reviewed the patient's past medical history past surgical history social history and family history Exam Initial Vital Signs Initial Vital Signs: Vital Signs Temperature 98 F 12/27/17 14:42 Pulse Rate 111 H 12/27/17 14:42 Respiratory Rate 18 12/27/17 14:42 Blood Pressure 114/80 12/27/17 14:42 Pulse Oximetry 94 12/27/17 14:42 Const General: cooperative, well developed, well groomed and No acute distress Orientation: alert, awake and oriented x3 [facility] Head: normal to inspection, normocephalic and atraumatic Ears: hearing grossly normal bilaterally Nose: external nose normal Face and sinus: normal facial exam Mouth: oral mucosae normal, tongue normal and oropharynx normal Teeth and gingiva: gingiva normal Throat: posterior oropharynx normal Eyes Eyelids: eyelids normal Conjunctivae: conjunctivae normal Resp Effort & Inspection: normal respiratory effort Auscultation: clear to auscultation bilaterally Cardio Rate: tachycardic Rhythm: regular rhythm Pulses: radial pulses present GI Inspection: non-distended Palpation: soft, No firm and No tender Back/Spine/Pelvis Back: No back tenderness and No CVA tenderness Skin Other: Patient with multiple lesions on bilateral lower extremities lower portion of his abdomen lower back and the medial aspect of his right upper extremity. These lesions vary in size from pinpoint to approximately 10 cm. They are well demarcated. Nonblanching. Some are petechiae in appearance some are raised purpura. He does have black eschar on bilateral toes. He does have ulcerations on bilateral feet. The lesions on his lower abdomen lower back and upper arms arm or petechiae in appearance. His mid thigh to ankles are more purpura. There are no vesicles, blisters, pustules. Lesions a very well demarcated without surrounding erythema no drainage from the ulcerations on his feet Neuro General: alert, awake and oriented x3 Cognition: normal cognition Speech: speech normal Motor: muscle tone normal throughout Sensory Exam: no sensory deficits noted Extrem Other: No gross deformities other than the skin which is described in the skin section Course Orders Ordered: Discontinued Medications Hydrocodone Bitart/Acetaminophen ([place] 5/325) 1 tab PO NOW ONE Stop: 12/27/17 17:12 Last Admin: 12/27/17 17:22 Dose: 1 tab Docusate Sodium (Colace) 100 mg PO NOW ONE Stop: 12/27/17 19:42 Last Admin: 12/27/17 19:53 Dose: 100 mg Oxycodone/Acetaminophen (Percocet 5/325) 2 tab PO NOW ONE Stop: 12/27/17 19:10 Last Admin: 12/27/17 19:20 Dose: 2 tab Trimethoprim/Sulfamethoxazole (Bactrim Ds) 1 tab PO NOW ONE Stop: 12/27/17 19:16 Last Admin: 12/27/17 19:28 Dose: 1 tab Vital Signs - 8 hr 12/27/17 14:42 Temperature 98 F Pulse Rate 111 H Respiratory Rate 18 Blood Pressure 114/80 Pulse Oximetry 94 MDM - Skin/Abscess/Foreign Bdy Medical Records Attestation: I reviewed the patient's medical records. Lab Data Attestation: I reviewed the patient's lab results. Result diagrams: 12/27/17 16:20 12/27/17 16:20 Lab Results 12/27/17 12/27/17 12/27/17 Range/Units 16:20 16:20 16:20 WBC 11.3 H (4.5-11.0) X10^3/uL RBC 4.44 L (4.5-5.9) X10^6/uL Hgb 15.2 (13.5-17.5) g/dL Hct 44.4 (41-53) % MCV 100.0 (80-100) fL MCH 34.2 H (26-34) PG MCHC 34.2 (30-36) % RDW 13.1 (11.6-14.8) % Plt Count 366 (150-400) X10^3/uL Neut % (Auto) 77.9 H (50-75) % Lymph % (Auto) 10.2 L (25-40) % Will % (Auto) 9.4 (3-14) % Eos % (Auto) 1.8 L (2-4) % Baso % (Auto) 0.7 (0-2) % Neut # (Auto) 8800 H (5321-8603) /uL ESR (0-15) MM/HR PT 12.5 (10.1-12.7) SECONDS INR 1.1 (0.9-1.3) APTT 29 (26.4-36.2) SECONDS D-Dimer 4010 H (<230) ng/mL Sodium 135 L (137-145) mmol/L Potassium 4.3 (3.4-5.1) mmol/L Chloride 89 L (98-107) mmol/L Carbon Dioxide 36 H (22-32) mmol/L BUN 15 (9-20) mg/dL Creatinine 0.80 (0.66-1.25) mg/dL Estimated GFR > 60.0 (>60) mL/min BUN/Creatinine Ratio 18.8 (6-22) Glucose 109 (80-110) mg/dL Lactate (0.7-2.1) mmol/L Calcium 9.0 (8.4-10.2) mg/dL Total Bilirubin 0.7 (0.2-1.3) mg/dL AST 83 H (17-59) IU/L ALT 89 H (21-72) IU/L Alkaline Phosphatase 99 (38-126) U/L Total Creatine Kinase 59 (55-170) U/L C-Reactive Protein 14.9 H (<1.0) mg/dL Total Protein 7.5 (6.3-8.2) g/dL Albumin 3.7 (3.5-5.0) g/dL Globulin 3.8 (1.7-4.1) g/dL Albumin/Globulin Ratio 1.0 (1.0-2.8) Procalcitonin (<0.5) ng/mL 12/27/17 12/27/17 12/27/17 Range/Units 16:20 16:20 16:20 WBC (4.5-11.0) X10^3/uL RBC (4.5-5.9) X10^6/uL Hgb (13.5-17.5) g/dL Hct (41-53) % MCV (80-100) fL MCH (26-34) PG MCHC (30-36) % RDW (11.6-14.8) % Plt Count (150-400) X10^3/uL Neut % (Auto) (50-75) % Lymph % (Auto) (25-40) % Will % (Auto) (3-14) % Eos % (Auto) (2-4) % Baso % (Auto) (0-2) % Neut # (Auto) (6033-0598) /uL ESR 37 H (0-15) MM/HR PT (10.1-12.7) SECONDS INR (0.9-1.3) APTT (26.4-36.2) SECONDS D-Dimer (<230) ng/mL Sodium (137-145) mmol/L Potassium (3.4-5.1) mmol/L Chloride (98-107) mmol/L Carbon Dioxide (22-32) mmol/L BUN (9-20) mg/dL Creatinine (0.66-1.25) mg/dL Estimated GFR (>60) mL/min BUN/Creatinine Ratio (6-22) Glucose (80-110) mg/dL Lactate 1.3 (0.7-2.1) mmol/L Calcium (8.4-10.2) mg/dL Total Bilirubin (0.2-1.3) mg/dL AST (17-59) IU/L ALT (21-72) IU/L Alkaline Phosphatase (38-126) U/L Total Creatine Kinase (55-170) U/L C-Reactive Protein (<1.0) mg/dL Total Protein (6.3-8.2) g/dL Albumin (3.5-5.0) g/dL Globulin (1.7-4.1) g/dL Albumin/Globulin Ratio (1.0-2.8) Procalcitonin 0.07 (<0.5) ng/mL MDM Narrative Medical decision making narrative: Patient states that the lesions on his feet are actually improving from his admission to the hospital however the lesions on the rest of his body are new from his discharge. Patient was sent here by his clinic for re-evaluation. Today he does have a slightly elevated white blood cell count and his other inflammatory markers such as ESR and CRP are also elevated. He does have an elevated D-dimer however his physical exam is not consistent with a DVT. The D-dimer could very well be elevated because of the blood filled lesions that are on his feet. He is not thrombocytopenic today. Consider diagnosis such as HIT since he did receive Lovenox while he was in the hospital however the initial lesions started prior to receiving any heparin products. Considered other diagnosis such as Petersen-Basil syndrome and toxic epidermal necrolysis or staphylococcal scalded skin syndrome however his physical exam is not consistent with these diagnosis. Also considered DIC however the patient is very well-appearing and not having any bleeding. Also consider diagnosis such as ITP and TTP however patient is not thrombocytopenic. I discussed the case with Dr. Rodríguez who saw the patient during his last hospital admission who stated that upon his discharge they were uncertain as to the exact etiology of the patient's symptoms which is why they recommended wound care follow-up and Dermatology for biopsy. Dr. Rodríguez felt that given the patient's clinical presentation and the workup that he had while in the hospital on his last visit that another hospitalization was not warranted. When I discussed the disposition with the patient to include starting him on antibiotics and having him follow up with the wound care clinic and also his primary doctor to discuss with referral to see Dermatology the became very upset. They [place] hospital [place] is difficult for them both time [place] and also financially. Informed them that hospitalization today was unnecessary and that the travel from the [place] is an issue that they were going to have to work out. We did discuss the importance of them seeing wound care and also Dermatology to help with ultimate diagnosis of his rash. They were again very upset and stated that they were going to go to another hospital. Patient was given a prescription for pain medication and also prescription for the antibiotics and was given return precautions. Discharge Plan Departure Patient Disposition: Home, Self-Care Clinical Impression: Cellulitis, Dermatitis, Rash Discharge Date/Time: 12/27/17 19:59 Interventions: ED Discharge Assessment Last Done: 12/27/17 19:58 Instructions: DI for Rash Activity Restrictions/Additional Instructions: you can follow-up with Dr. wolf at the wound Care Clinic here at [facility]. It is located the [facility] address is [address] [place] [address] and a [facility]. The phone number is [phone]. Recommend that you continue the local wound care like you have been doing. Start the antibiotics that you were given today. Take the pain medication as directed. Also highly recommend that you get a referral to see dermatology. This referral can be placed by your primary care doctor or you can talk with Dr. wolf about this. Prescriptions: New sulfamethoxazole-trimethoprim 800-160 mg tablet 1 tab PO BID 7 Days Qty: 14 RF: 0 oxycodone-acetaminophen 5-325 mg tablet 2 tab PO Q4-6H PRN (Reason: pain) Qty: 20 RF: 0 docusate sodium 100 mg capsule 100 mg PO BID PRN (Reason: constipation) Qty: 10 RF: 0 No Action gentamicin 0.1 % ointment 1 applictn TOP DAILY Qty: 30 RF: 0 oxycodone 5 mg tablet 5 - 10 mg PO Q6HR PRN (Reason: Pain (Scale Score 1-3)) RF: 0
--- NOTE | 2017-12-27 16:09 | PC.NURSE ---
patient has a generalized petechiae and purpura rash on bilateral upper extremities, bilateral lower extremities, buttocks, back and lower abdomen. the rash is non blanching and he reports that is kowalski.
[2017-12-27 16:46] LABS: Add Manual Diff / Slide Review NO; Basophils Percent Auto 0.7 % (0-2); Eosinophils Percent Auto 1.8 % (2-4); Hematocrit 44.4 % (41-53); Hemoglobin 15.2 g/dL (13.5-17.5); Lymphocytes Percent Auto 10.2 % (25-40); Mean Corpuscular HGB Conc 34.2 % (30-36); Mean Corpuscular Hemoglobin 34.2 PG (26-34); Monocytes Percent Auto 9.4 % (3-14); Neutrophils Absolute Auto 8800 /uL (3000-5900); Neutrophils Percent Auto 77.9 % (50-75); Platelet Count 366 X10^3/uL (150-400); Red Blood Cell Count 4.44 X10^6/uL (4.5-5.9); Red Cell Distribution Width 13.1 % (11.6-14.8); White Blood Cell Count 11.3 X10^3/uL (4.5-11.0)
[2017-12-27 16:49] VITALS: BP 141/83; PULSE 94; RESP 18; O2SAT 96
[2017-12-27 16:57] LABS: INR 1.1 (0.9-1.3); Prothrombin Time 12.5 SECONDS (10.1-12.7)
[2017-12-27 16:59] LABS: PTT Partial Thromboplastin Tim 29 SECONDS (26.4-36.2)
[2017-12-27 17:08] LABS: Lactate (Lactic Acid) 1.3 mmol/L (0.7-2.1)
[2017-12-27 17:10] LABS: Alanine Aminotransferase 89 IU/L (21-72); Albumin 3.7 g/dL (3.5-5.0); Alkaline Phosphatase 99 U/L (38-126); Aspartate Aminotransferase 83 IU/L (17-59); BUN Creatinine Ratio 18.8 (6-22); Bilirubin Total 0.7 mg/dL (0.2-1.3); Blood Urea Nitrogen 15 mg/dL (9-20); Carbon Dioxide 36 mmol/L (22-32); Chloride 89 mmol/L (98-107); Creatine Kinase 59 U/L (55-170); D Dimer 4010 ng/mL (<230); Estimated Glomerular Filt Rate > 60.0 mL/min (>60); Globulin 3.8 g/dL (1.7-4.1); Glucose 109 mg/dL (80-110); HEMOLYSIS < 15 (0-50); Potassium 4.3 mmol/L (3.4-5.1); Sodium 135 mmol/L (137-145); Total Protein 7.5 g/dL (6.3-8.2)
[2017-12-27 17:12] LABS: Erythrocyte Sedimentation Rate 37 MM/HR (0-15)
[2017-12-27] MEDS: HYDROCODONE/ACET 5/325 TABLET 1 TAB PO (17:22)
[2017-12-27 17:24] LABS: C-Reactive Protein Quant 14.9 mg/dL (<1.0)
[2017-12-27 17:36] VITALS: BP 136/93; PULSE 94; RESP 18; TEMP 36.7; O2SAT 96
[2017-12-27 17:36] LABS: Procalcitonin 0.07 ng/mL (<0.5)
[2017-12-27] MEDS: OXYCODONE/ACETAMINOPHEN 5/325 TABLET 2 TAB PO (19:20)
[2017-12-27] MEDS: SULFA/TRIMETH 800/160 (DS) TABLET 1 TAB PO (19:28)
[2017-12-27] MEDS: DOCUSATE 100 MG CAPSULE PO (19:53)
--- NOTE | 2017-12-27 19:56 | PC.NURSE ---
patient concerned about being discharged. family requesting to speak to charge nurse. charge nurse at bedside addressing patients concerns. family has no questions after issues addressed.
== END 2017-12-27 19:59 | disposition home or self-care (01) ==
PROVIDERS: Emergency Provider Emergency Medicine; Family Provider Family Medicine; PCP Family Medicine
DX: L03.90 Cellulitis, unspecified (principal); L30.9 Dermatitis, unspecified; R21 Rash and other nonspecific skin eruption
CPT/HCPCS: 36591; 80053; 82550; 83605; 84145; 85025; 85379; 85610; 85651; 85730; 86140; 99282; 99283

== ENCOUNTER → 2021-08-08 15:40 | Outpatient (CLI) | payer OTHER, MEDICAID, SELFPAY ==
[2017-12-15 00:09] VITALS: BMI 30.5
== END ==
PROVIDERS: Family Provider Family Medicine; PCP Physician Assistant; Visit Provider Physician Assistant
DX: M31.0 Hypersensitivity angiitis (principal)
CPT/HCPCS: 87070; 87075; 87205

== ENCOUNTER → 2021-08-16 13:01 | Outpatient (CLI) | payer OTHER, MEDICAID, SELFPAY ==
[2017-12-15 00:09] VITALS: BMI 30.5
[2021-08-16 18:37] LABS: Add Manual Diff / Slide Review NO; Basophils Absolute Auto 0 /uL (0-100); Basophils Percent Auto 0.8 % (0-2); Eosinophils Absolute Auto 300 /uL (0-450); Hematocrit 48.9 % (41-53); Hemoglobin 16.8 g/dL (13.5-17.5); Lymphocytes Absolute Auto 1400 /uL (1100-4500); Lymphocytes Percent Auto 24.5 % (25-40); Mean Corpuscular HGB Conc 34.3 % (30-36); Mean Corpuscular Hemoglobin 35.3 PG (26-34); Monocytes Absolute Auto 800 /uL (0-900); Monocytes Percent Auto 14.9 % (3-14); Neutrophils Absolute Auto 3100 /uL (1500-7000); Neutrophils Percent Auto 54.8 % (50-75); Platelet Count 190 X10^3/uL (150-400); Red Blood Cell Count 4.75 X10^6/uL (4.5-5.9); Red Cell Distribution Width 13.2 % (11.6-14.8); White Blood Cell Count 5.7 X10^3/uL (4.5-11.0)
[2021-08-16 18:56] LABS: Hemoglobin A1C% w Est Avg Glu 5.7 % (4.0-6.0)
[2021-08-16 18:57] LABS: Alanine Aminotransferase 26 IU/L (<50); Albumin 3.9 g/dL (3.5-5.0); Albumin Globulin Ratio 1.4 (1.0-2.8); Alkaline Phosphatase 83 U/L (38-126); Aspartate Aminotransferase 28 IU/L (17-59); BUN Creatinine Ratio 14.7 (6-22); Bilirubin Total 0.4 mg/dL (0.2-1.3); Blood Urea Nitrogen 11 mg/dL (9-20); Calcium 8.7 mg/dL (8.4-10.2); Carbon Dioxide 31 mmol/L (22-32); Chloride 92 mmol/L (98-107); Estimated Glomerular Filt Rate > 60.0 mL/min (>60); Globulin 2.8 g/dL (1.7-4.1); Glucose 104 mg/dL (80-110); HEMOLYSIS 26 (0-50); Potassium 5.1 mmol/L (3.4-5.1); Sodium 132 mmol/L (137-145); Total Protein 6.7 g/dL (6.3-8.2)
[2021-08-16 19:22] LABS: Prostate Specific Antigen 1.52 ng/mL (0.10-4.00)
== END ==
PROVIDERS: Family Provider Family Medicine; PCP Physician Assistant; Visit Provider Physician Assistant
DX: M31.0 Hypersensitivity angiitis (principal); R03.0 Elevated blood-pressure reading, without diagnosis of hypertension; Z12.5 Encounter for screening for malignant neoplasm of prostate
CPT/HCPCS: 80053; 83036; 84153; 85025

== ENCOUNTER → 2021-08-25 13:01 | Outpatient (CLI) | payer OTHER, MEDICAID, SELFPAY ==
[2017-12-15 00:09] VITALS: BMI 30.5
[2021-08-25 19:17] LABS: Add Manual Diff / Slide Review NO; Basophils Absolute Auto 0 /uL (0-100); Basophils Percent Auto 0.5 % (0-2); Eosinophils Absolute Auto 200 /uL (0-450); Eosinophils Percent Auto 2.3 % (2-4); Hematocrit 51.4 % (41-53); Hemoglobin 17.4 g/dL (13.5-17.5); Lymphocytes Absolute Auto 1700 /uL (1100-4500); Mean Corpuscular HGB Conc 33.9 % (30-36); Mean Corpuscular Volume 103.2 fL (80-100); Monocytes Absolute Auto 800 /uL (0-900); Monocytes Percent Auto 11.1 % (3-14); Neutrophils Absolute Auto 4500 /uL (1500-7000); Neutrophils Percent Auto 62.1 % (50-75); Platelet Count 201 X10^3/uL (150-400); Red Blood Cell Count 4.98 X10^6/uL (4.5-5.9); Red Cell Distribution Width 13.3 % (11.6-14.8); White Blood Cell Count 7.3 X10^3/uL (4.5-11.0)
[2021-08-25 19:19] LABS: BUN Creatinine Ratio 14.7 (6-22); Blood Urea Nitrogen 10 mg/dL (9-20); Calcium 9.1 mg/dL (8.4-10.2); Carbon Dioxide 33 mmol/L (22-32); Chloride 94 mmol/L (98-107); Estimated Glomerular Filt Rate > 60.0 mL/min (>60); Glucose 120 mg/dL (80-110); HEMOLYSIS 27 (0-50); Potassium 4.9 mmol/L (3.4-5.1); Sodium 133 mmol/L (137-145)
[2021-08-25 19:26] LABS: NT-proBNP (BNP-Adult 18+) 626 pg/mL (<125)
== END ==
PROVIDERS: Family Provider Family Medicine; PCP Physician Assistant; Visit Provider Physician Assistant
DX: E87.1 Hypo-osmolality and hyponatremia (principal); L40.9 Psoriasis, unspecified; M31.0 Hypersensitivity angiitis
CPT/HCPCS: 80048; 83880; 85025

== ENCOUNTER → 2021-08-26 10:55 | Outpatient (CLI) | payer OTHER, MEDICAID, SELFPAY ==
[2017-12-15 00:09] VITALS: BMI 30.5
[2021-08-26 19:07] LABS: Sodium Urine Random 13 mmol/L (30-90)
[2021-08-26 20:10] LABS: Appearance Urine UA CLEAR; Bilirubin Urine UA NEGATIVE (NEGATIVE); Color Urine UA YELLOW; Glucose Urine UA NEGATIVE (Negative); Ketones Urine UA NEGATIVE (NEGATIVE); Leukocyte Esterase Urine UA NEGATIVE (NEGATIVE); Nitrite Urine UA NEGATIVE (Negative); Occult Blood Urine UA NEGATIVE (Negative); Protein Urine UA 2+ (Negative); Urobilinogen Urine UA 0.2 E.U./dL (0.2)
[2021-08-26 20:34] LABS: Bacteria Urine None Seen; Culture Indicated Urine Cult Not Indicated; RBC Urine None Seen (0-5/HPF); Squamous Epithelial Cell Urine 1-5 /HPF (0-5/HPF); WBC Urine 1-5/HPF (0-5/HPF)
[2021-08-29 18:54] LABS: Osmolality Urine 236 mOsmol/kg (.)
== END ==
PROVIDERS: Family Provider Family Medicine; PCP Physician Assistant; Visit Provider Physician Assistant
DX: E87.1 Hypo-osmolality and hyponatremia (principal); L40.9 Psoriasis, unspecified; M31.0 Hypersensitivity angiitis
CPT/HCPCS: 81001; 83935; 84300

== ENCOUNTER → 2022-07-25 13:09 | Outpatient (CLI) | payer OTHER, MEDICAID, SELFPAY ==
[2017-12-15 00:09] VITALS: BMI 30.5
[2022-07-25 19:48] LABS: Add Manual Diff / Slide Review NO; Basophils Absolute Auto 100 /uL (0-100); Basophils Percent Auto 0.8 % (0-2); Eosinophils Absolute Auto 200 /uL (0-450); Eosinophils Percent Auto 2.2 % (2-4); Hematocrit 50.4 % (41-53); Hemoglobin 16.7 g/dL (13.5-17.5); Lymphocytes Absolute Auto 2200 /uL (1100-4500); Lymphocytes Percent Auto 30.4 % (25-40); Mean Corpuscular HGB Conc 33.2 % (30-36); Mean Corpuscular Hemoglobin 34.3 PG (26-34); Mean Corpuscular Volume 103.3 fL (80-100); Monocytes Absolute Auto 1000 /uL (0-900); Monocytes Percent Auto 13.5 % (3-14); Neutrophils Absolute Auto 3800 /uL (1500-7000); Neutrophils Percent Auto 53.1 % (50-75); Platelet Count 210 X10^3/uL (150-400); Red Blood Cell Count 4.88 X10^6/uL (4.5-5.9); Red Cell Distribution Width 13.4 % (11.6-14.8); White Blood Cell Count 7.1 X10^3/uL (4.5-11.0)
[2022-07-25 19:51] LABS: Uric Acid 7.4 mg/dL (3.5-8.5)
[2022-07-25 19:53] LABS: Alanine Aminotransferase 33 IU/L (<50); Albumin 3.7 g/dL (3.5-5.0); Albumin Globulin Ratio 1.3 (1.0-2.8); Alkaline Phosphatase 63 U/L (38-126); Aspartate Aminotransferase 25 IU/L (17-59); BUN Creatinine Ratio 22.4 (6-22); Bilirubin Total 0.6 mg/dL (0.2-1.3); Blood Urea Nitrogen 15 mg/dL (9-20); Calcium 8.5 mg/dL (8.4-10.2); Carbon Dioxide 32 mmol/L (22-32); Chloride 100 mmol/L (98-107); Cholesterol 246 mg/dL (140-199); Estimated Glomerular Filt Rate > 60 mL/min (>60); Globulin 2.9 g/dL (1.7-4.1); Glucose 105 mg/dL (80-110); HDL Cholesterol 78 mg/dL (40-60); HEMOLYSIS 18 (0-50); LDL Cholesterol Calculated 154 mg/dL (<100); Potassium 4.6 mmol/L (3.4-5.1); Sodium 139 mmol/L (137-145); Total Protein 6.6 g/dL (6.3-8.2); Triglycerides 68 mg/dL (35-150)
[2022-07-25 20:00] LABS: Hemoglobin A1C% w Est Avg Glu 5.9 % (4.0-6.0); NT-proBNP (BNP-Adult 18+) 417 pg/mL (<125)
[2022-07-25 20:32] LABS: Erythrocyte Sedimentation Rate 1 MM/HR (0-15)
[2022-07-26 17:15] LABS: Microalbumin Urine Random 28.3 mg/dL (0-1.6)
== END ==
PROVIDERS: Physician Assistant; Family Provider Family Medicine; PCP Physician Assistant; Visit Provider Family Medicine
DX: E87.1 Hypo-osmolality and hyponatremia (principal); I50.9 Heart failure, unspecified; M31.0 Hypersensitivity angiitis; N05.8 Unspecified nephritic syndrome with other morphologic changes; R31.0 Gross hematuria; R80.8 Other proteinuria; M79.89 Other specified soft tissue disorders
CPT/HCPCS: 80053; 80061; 82043; 82570; 83036; 83880; 84550; 85025; 85651

== ENCOUNTER → 2022-09-22 11:10 | Outpatient (CLI) | payer OTHER, MEDICAID, SELFPAY ==
[2017-12-15 00:09] VITALS: BMI 30.5
[2022-09-22 18:39] LABS: Blood Urea Nitrogen 17 mg/dL (9-20); Calcium 9.4 mg/dL (8.4-10.2); Carbon Dioxide 32 mmol/L (22-32); Chloride 94 mmol/L (98-107); Estimated Glomerular Filt Rate > 60 mL/min (>60); Glucose 129 mg/dL (80-110); HEMOLYSIS 15 (0-50); Potassium 4.6 mmol/L (3.4-5.1); Sodium 136 mmol/L (137-145)
[2022-09-22 18:48] LABS: NT-proBNP (BNP-Adult 18+) 242 pg/mL (<125)
[2022-09-22 18:56] LABS: Free T4, Direct Thyroxine 1.31 ng/dL (0.78-2.19)
== END ==
PROVIDERS: Family Provider Family Medicine; PCP Physician Assistant; Visit Provider Family Medicine
DX: E87.1 Hypo-osmolality and hyponatremia (principal); J43.9 Emphysema, unspecified; I50.9 Heart failure, unspecified; R06.02 Shortness of breath; R80.8 Other proteinuria; R09.02 Hypoxemia
CPT/HCPCS: 80048; 83880; 84439

== ENCOUNTER → 2023-02-22 14:13 | Outpatient (CLI) | payer MEDICARE, MEDICAID, SELFPAY ==
[2023-01-26 13:20] VITALS: BMI 30.5
[2023-02-22 20:13] LABS: Creatinine Urine Random 138.2 mg/dL; Protein (Total) Urine Random 14 mg/dL (0-12)
== END ==
PROVIDERS: Family Provider Family Medicine; PCP Family Medicine; Visit Provider Family Medicine
DX: N02.9 Recurrent and persistent hematuria with unspecified morphologic changes (principal); N05.8 Unspecified nephritic syndrome with other morphologic changes; R80.8 Other proteinuria
CPT/HCPCS: 81002; 82570; 84156

== ENCOUNTER → 2023-03-01 13:33 | Outpatient (CLI) | payer MEDICARE, MEDICAID, SELFPAY ==
[2023-01-26 13:20] VITALS: BMI 30.5
[2023-03-01 20:12] LABS: C-Reactive Protein Quant 1.5 mg/dL (<1.0)
[2023-03-01 20:28] LABS: Troponin I < 0.012 ng/mL (0.01-0.034)
[2023-03-01 20:35] LABS: Microalbumin Urine Random 25.8 mg/dL (0-1.6)
[2023-03-01 20:42] LABS: Hepatitis B Surface Antigen NEGATIVE s/c (NEGATIVE); Microalbumi Creatinin Ratio Ur 69.1 ug/mg CR (<30)
[2023-03-01 20:58] LABS: Hep C Virus Ab w/Reflex Quant NEGATIVE s/c (NEGATIVE)
[2023-03-01 21:09] LABS: Erythrocyte Sedimentation Rate 1 MM/HR (0-15)
[2023-03-03 05:28] LABS: Hepatitis B Core Antibody Negative (Negative)
[2023-03-05 10:07] LABS: Hepatitis B Surf Ab Qualitativ Non Reactive (.)
[2023-03-05 15:08] LABS: ANA Screen, IFA Negative (.)
[2023-03-06 13:10] LABS: Antimyeloperoxidase Antibodies <0.2 units (0.0-0.9); Antiproteinase 3 Antibodies <0.2 units (0.0-0.9); Cytoplasmic C-ANCA <1:20 titer (Neg:<1:20); Perinuclear P-ANCA <1:20 titer (Neg:<1:20)
== END ==
PROVIDERS: Family Medicine; Family Provider Family Medicine; PCP Family Medicine; Visit Provider Family Medicine
DX: K75.81 Nonalcoholic steatohepatitis (NASH) (principal); M31.0 Hypersensitivity angiitis; R06.02 Shortness of breath; R09.02 Hypoxemia; R80.8 Other proteinuria
CPT/HCPCS: 82043; 82570; 84484; 85651; 86038; 86140; 86256; 86704; 86706; 86803; 87340

== ENCOUNTER → 2023-03-08 12:01 | Outpatient (CLI) | payer MEDICARE, MEDICAID, SELFPAY ==
[2023-01-26 13:20] VITALS: BMI 30.5
--- NOTE | 2023-03-08 12:05 | DI.CT.S_ITS ---
PROCEDURE: CT CHEST W CON INDICATIONS: vasculitis and hypoxia -- suspect granulomatous dz TECHNIQUE: After the administration of intravenous contrast, 5 mm thick sections acquired from the pulmonary apices to the posterior costophrenic angles. 1 mm axial lung, 5 mm thick coronal and sagittal reformats and 7 mm axial MIP were acquired. For radiation dose reduction, the following was used: automated exposure control, adjustment of mA and/or kV according to patient size. COMPARISON: [facility], CT, CT ANGIO CHEST PE PROTOCOL, 12/16/2017, 11:29. [facility] ([facility]), CR, XR CHEST 2V, 09/15/2022, 14:36. FINDINGS: Lungs and pleura: Mild emphysema. No consolidation or pleural effusion. A few calcified granulomata are present , for example in the left lower lobe (3/161). Mediastinum: No pericardial effusion. Multivessel coronary artery calcifications and/or stents. No calcified mediastinal hilar lymph nodes. Thoracic aorta and central pulmonary arteries are normal in size. Esophagus is normal in caliber. Bones and chest wall: Multilevel degenerative change of the visualized spine. No axillary or supraclavicular adenopathy by size criteria. Abdomen: Visualized upper abdominal solid organs appear normal. Upper abdominal bowel loops are normal in caliber. IMPRESSION: A few calcified granulomata are present suggestive of prior granulomatous disease. No definite calcified mediastinal or hilar lymph nodes identified. Dictated by: Andrew Hightower M.D. on 03/09/2023 at 8:44 Approved by: Andrew Hightower M.D. on 03/09/2023 at 9:05
[2023-03-08 13:20] LABS: Estimated Glomerular Filt Rate > 60 mL/min (>60)
== END ==
PROVIDERS: Specialist; Family Provider Family Medicine; PCP Family Medicine; Referring Provider Family Medicine; Visit Provider Family Medicine
DX: Z77.090 Contact with and (suspected) exposure to asbestos (principal); R09.02 Hypoxemia; R06.02 Shortness of breath; M31.0 Hypersensitivity angiitis
CPT/HCPCS: 36415; 71260; 82565; Q9967

== ENCOUNTER → 2023-10-23 11:19 | Outpatient (CLI) | payer MEDICARE, MEDICAID, SELFPAY ==
[2023-01-26 13:20] VITALS: BMI 30.5
--- NOTE | 2023-10-23 11:20 | DI.MRI.S_ITS ---
PROCEDURE: MR FOOT RT WO CON INDICATIONS: Pain in right foot TECHNIQUE: Multiphasic, multisequence MRI of the forefoot was performed, without intravenous contrast administration. COMPARISON: [facility] ([facility]), CR, XR FOOT RT MIN 3V, 09/18/2023, 13:00. FINDINGS: Image quality: Excellent. Bones and joints: Diffuse marrow edema of the 1st, 2nd, 3rd, and the 4th metatarsal diaphysis, without fracture line. There is associated periosteal thickening at the 2nd and 3rd metatarsal diaphysis, suggestive of stress changes. Moderate amount of fluid is seen in the metatarsophalangeal joints. Additional diffuse marrow edema of the 2nd proximal phalanx. Soft tissues: Mild fatty atrophy and the muscle within the mid and forefoot. Diffuse subcutaneous edema of the dorsal midfoot, extending into the anterior ankle. The flexor tendons are intact. Moderate amount of fluid at the master knot of [place]. The extensor tendons are unremarkable. No intermetatarsal bursitis. In addition, there is diffuse subcutaneous edema in the 2nd distal toe. The Lisfranc ligament is intact. IMPRESSION: 1. Diffuse marrow edema of the 1st, 2nd, 3rd, and 4th metatarsal diaphysis with periosteal thickening of the 2nd and 3rd metatarsal diaphysis, raising concern for stress injury. No associated fracture. 2. Diffuse marrow edema of the 2nd proximal phalanx with associated diffuse subcutaneous edema of the 2nd distal toe, nonspecific and may be secondary to stress changes as well. 3. Additional diffuse subcutaneous edema of the dorsal midfoot extending to the anterior ankle. Dictated by: Kelsey Gaxiola M.D. on 10/23/2023 at 20:52 Approved by: Kelsey Gaxiola M.D. on 10/23/2023 at 21:01
== END ==
LOC: MRI 11:20
PROVIDERS: Family Provider Family Medicine; PCP Family Medicine; Referring Provider Podiatrist; Visit Provider Podiatrist
DX: M79.671 Pain in right foot (principal); R60.0 Localized edema
CPT/HCPCS: 73718

== ENCOUNTER → 2024-03-17 12:00 | Outpatient (CLI) | payer MEDICARE, MEDICAID, SELFPAY ==
[2023-01-26 13:20] VITALS: BMI 30.5
[2024-03-17 19:34] LABS: Add Manual Diff / Slide Review NO; Basophils Absolute Auto 0 /uL (0-100); Basophils Percent Auto 0.6 % (0-2); Eosinophils Absolute Auto 400 /uL (0-450); Eosinophils Percent Auto 5.1 % (2-4); Hematocrit 50.7 % (41-53); Hemoglobin 17.3 g/dL (13.5-17.5); Lymphocytes Absolute Auto 1800 /uL (1100-4500); Lymphocytes Percent Auto 25.3 % (25-40); Mean Corpuscular HGB Conc 34.2 % (30-36); Mean Corpuscular Hemoglobin 35.1 PG (26-34); Mean Corpuscular Volume 102.7 fL (80-100); Monocytes Absolute Auto 900 /uL (0-900); Monocytes Percent Auto 12.2 % (3-14); Neutrophils Absolute Auto 4000 /uL (1500-7000); Neutrophils Percent Auto 56.8 % (50-75); Platelet Count 197 X10^3/uL (150-400); Red Blood Cell Count 4.94 X10^6/uL (4.5-5.9); Red Cell Distribution Width 13.4 % (11.6-14.8)
[2024-03-17 19:47] LABS: Hemoglobin A1C% w Est Avg Glu 5.3 % (4.0-6.0)
[2024-03-17 19:54] LABS: Alanine Aminotransferase 26 IU/L (<50); Albumin 4.1 g/dL (3.5-5.0); Albumin Globulin Ratio 1.3 (1.0-2.8); Alkaline Phosphatase 88 U/L (38-126); Aspartate Aminotransferase 35 IU/L (17-59); BUN Creatinine Ratio 11.9 (6-22); Bilirubin Total 0.8 mg/dL (0.2-1.3); Blood Urea Nitrogen 8 mg/dL (9-20); C-Reactive Protein Quant 0.6 mg/dL (<1.0); Calcium 9.3 mg/dL (8.4-10.2); Carbon Dioxide 32 mmol/L (22-32); Chloride 98 mmol/L (98-107); Cholesterol 221 mg/dL (140-199); Estimated Glomerular Filt Rate > 60 mL/min (>60); Globulin 3.2 g/dL (1.7-4.1); Glucose 122 mg/dL (80-110); HDL Cholesterol 83 mg/dL (40-60); HEMOLYSIS 34 (0-50); LDL Cholesterol Calculated 123 mg/dL (<100); Potassium 4.8 mmol/L (3.4-5.1); Sodium 136 mmol/L (137-145); Total Protein 7.3 g/dL (6.3-8.2); Triglycerides 77 mg/dL (35-150)
[2024-03-17 19:55] LABS: Erythrocyte Sedimentation Rate 1 MM/HR (0-15)
[2024-03-17 20:14] LABS: Thyroid Stimulating Hormone 1.13 uIU/mL (0.47-4.68)
== END ==
PROVIDERS: Family Provider Family Medicine; PCP Family Medicine; Visit Provider Family Medicine
DX: R74.01 Elevation of levels of liver transaminase levels (principal); E87.1 Hypo-osmolality and hyponatremia; R73.09 Other abnormal glucose; M31.0 Hypersensitivity angiitis; E88.89 Other specified metabolic disorders; R03.0 Elevated blood-pressure reading, without diagnosis of hypertension; I50.9 Heart failure, unspecified
CPT/HCPCS: 80053; 80061; 83036; 84443; 85025; 85651; 86140

== ENCOUNTER → 2025-04-16 11:33 | Outpatient (CLI) | payer MEDICARE, MEDICAID, SELFPAY ==
[2023-01-26 13:20] VITALS: BMI 30.5
[2025-04-16 19:05] LABS: Hematocrit 50.0 % (41-53); Hemoglobin 17.1 g/dL (13.5-17.5); Mean Corpuscular HGB Conc 34.2 % (30-36); Mean Corpuscular Hemoglobin 35.0 PG (26-34); Mean Corpuscular Volume 102.4 fL (80-100); Platelet Count 193 X10^3/uL (150-400)
[2025-04-16 19:37] LABS: Alanine Aminotransferase 22 IU/L (<50); Albumin 3.8 g/dL (3.5-5.0); Albumin Globulin Ratio 1.2 (1.0-2.8); Alkaline Phosphatase 74 U/L (38-126); Blood Urea Nitrogen 9 mg/dL (9-20); Calcium 9.0 mg/dL (8.4-10.2); Carbon Dioxide 31 mmol/L (22-32); Chloride 98 mmol/L (98-107); Cholesterol 183 mg/dL (140-199); Estimated Glomerular Filt Rate > 60 mL/min (>60); Globulin 3.1 g/dL (1.7-4.1); Glucose 152 mg/dL (70-99); HDL Cholesterol 68 mg/dL (40-60); HEMOLYSIS 33 (0-50); Potassium 4.2 mmol/L (3.4-5.1); Sodium 135 mmol/L (137-145); Total Protein 6.9 g/dL (6.3-8.2); Triglycerides 78 mg/dL (35-150)
[2025-04-16 20:08] LABS: Hemoglobin A1C% w Est Avg Glu 5.4 % (4.0-6.0)
[2025-04-16 20:14] LABS: Thyroid Stimulating Hormone 1.49 uIU/mL (0.47-4.68)
== END ==
PROVIDERS: Family Provider Family Medicine; PCP Family Medicine; Visit Provider Family Medicine
DX: I50.9 Heart failure, unspecified (principal); J43.9 Emphysema, unspecified; R74.01 Elevation of levels of liver transaminase levels; R03.0 Elevated blood-pressure reading, without diagnosis of hypertension; R73.09 Other abnormal glucose; E87.1 Hypo-osmolality and hyponatremia; M31.0 Hypersensitivity angiitis; E88.89 Other specified metabolic disorders; Z12.5 Encounter for screening for malignant neoplasm of prostate
CPT/HCPCS: 80053; 80061; 83036; 84443; 85027; G0103